=== PATIENT | female | born 1965 | race Caucasian/White ===

== ENCOUNTER 2017-03-25 11:25 | Day surgery (SDC) | payer OTHER ==
[2017-03-24 08:37] VITALS: BMI 30.9
[~2017-03-25 11:25] MED LIST: LACTATED RINGERS 1,000 ML IV SCH
[2017-03-25] MEDS ORDERED: LIDOCAINE 1% 20 ML VIAL (10MG/ML) FOR IV START INTRADERMA ONE (12:39)
[2017-03-25 12:42] VITALS: TEMP 97
[2017-03-25] MEDS ORDERED: GLYCOPYRROLATE 0.2 MG/ML 2 ML VIAL ONE (12:54)
[2017-03-25] MEDS ORDERED: PROPOFOL 10 MG/ML 20 ML VIAL IV ONE (12:54)
[2017-03-25] MEDS ORDERED: fentaNYL (PF) 50 MCG/ML 2 ML AMP ONE (12:54)
[2017-03-25 13:26] VITALS: PULSE 70
--- NOTE | 2017-03-25 13:35 | P.PCN ---
Date of Procedure: 03/25/17 Procedure(s) Performed: Procedures: 1. Esophagogastroduodenoscopy and biopsy. 2. Total colonoscopy. Preoperative diagnosis: Chronic reflux symptoms and screening for colon neoplasia. Postoperative diagnosis: 1. Small sliding hiatal hernia with no obvious esophagitis or complicated reflux disease. 2. Mild antral gastritis. 3. Sigmoid diverticulosis with no evidence of acute diverticulitis, strictures, polyps or cancer. Preparation: HalfLytely prep. Sedation: Was provided by anesthesia. Brief clinical history: The patient is a 51-year-old female who is scheduled for this evaluation for the above reasons. She had reflux symptoms for more than 10 years for which she treats with [id number] remedies. No alarm symptoms. She has no abdominal complaints, bleeding or anemia. No family history of colon cancer. This would be her first colonoscopy. Procedure: With the patient on her left lateral decubitus position and after informed consent and adequate sedation, I passed the Olympus-GIF 160 video upper endoscope through the cricopharyngeus down the esophagus. GE junction was around 39 cm from the incisors and there was a small sliding hiatal hernia. The esophagus did not show any obvious erosions, ulcers, strictures or Yeh 's esophagus. The endoscope was then passed into the stomach which was insufflated with air and inspected in detail including the retroflex view in the cardia. There was some mottling and erythema in the antrum but no ulcers or erosions. Pyloric channel, duodenal bulb, post bulbar area and descending duodenum appeared within normal limits. Because of her symptoms, I obtained biopsies from the duodenum, antrum and esophagus then the endoscope was withdrawn and I proceeded with the colonoscopy. Perianal area did not show any fissures or fistulas. There were no masses felt on digital rectal examination. The Olympus CFQ 160L video colonoscope was then inserted in the rectum in the usual fashion and advanced to the cecum. The mucosa appeared healthy. No polyps or tumors were seen. Several diverticular orifices were seen scattered in the sigmoid with no evidence of acute diverticulitis or strictures. I retroflexed the endoscope in the rectum before the endoscope was withdrawn. The patient tolerated the procedure well. Plan: The patient was reassured. Will await biopsy results. Discussed dietary measures. She will follow-up with you as planned and I recommended repeat colonoscopy in 10 years.
[2017-03-25 13:42] VITALS: BP 129/70; RESP 18
== END 2017-03-25 13:58 | disposition home or self-care (01) ==
LOC: ORWHC2ENDO 11:25
DX: Z12.11 Encounter for screening for malignant neoplasm of colon (principal); K29.50 Unspecified chronic gastritis without bleeding; K21.0 Gastro-esophageal reflux disease with esophagitis; K44.9 Diaphragmatic hernia without obstruction or gangrene; K57.30 Diverticulosis of large intestine without perforation or abscess without bleeding; Z80.0 Family history of malignant neoplasm of digestive organs; I10 Essential (primary) hypertension; F17.210 Nicotine dependence, cigarettes, uncomplicated; Z79.899 Other long term (current) drug therapy
CPT/HCPCS: 81025; 88305; 43239; J3010; J2704; G0105

== ENCOUNTER → 2017-03-31 | Outpatient (CLI) | payer OTHER ==
--- NOTE | 2017-04-01 14:44 | MM ---
Reason for exam: screening (asymptomatic). Last mammogram was performed 6 years and 1 month ago. Physical Findings: A clinical breast exam by your physician is recommended on an annual basis and results should be correlated with mammographic findings. MG Screening Mammo w CAD Bilateral CC and MLO view(s) were taken. Prior study comparison: March 12, 2011, CAD bilateral diagnostic mammogram. May 03, 2010, right diagnostic mammogram w/CAD. The breast tissue is heterogeneously dense. This may lower the sensitivity of mammography. No significant changes when compared with prior studies. ASSESSMENT: Negative, BI-RAD 1 RECOMMENDATION: Routine screening mammogram of both breasts in 1 year.
== END | disposition home or self-care (01) ==
LOC: RADMAMWWP 07:47
PROVIDERS: ATTEND Family Medicine
DX: Z12.31 Encounter for screening mammogram for malignant neoplasm of breast (principal)
CPT/HCPCS: 77067

== ENCOUNTER 2017-05-25 11:41 | Emergency (ER) | payer OTHER ==
[2017-05-25] MEDS ORDERED: HYDROcodone/APAP 5-325MG 1 EACH TAB PO STA (12:05)
--- NOTE | 2017-05-25 13:01 | CT ---
EXAMINATION TYPE: CT brain dawit bhardwaj DATE OF EXAM: 05/25/2017 COMPARISON: NONE HISTORY: Fall today with injury. Head and neck pain CT DLP: 1577.9 mGycm Automated exposure control for dose reduction was used. TECHNIQUE: CT scan of the head and cervical spine are performed without contrast. FINDINGS: BRAIN: Central structures are midline. There is no evidence of hydrocephalus. No acute focal lesion, mass effect or midline shift is seen. I do not see evidence of intracranial blood. Visualized portions of the paranasal sinuses and mastoids are clear. The bony calvarium is intact. IMPRESSION: NO ACUTE INTRACRANIAL ABNORMALITY. CERVICAL SPINE: There are mild emphysematous changes within the visualized portions of the lungs. Prevertebral soft tissues are normal. Vertebral body height and alignment are maintained. Atlantoaxial relationships are normal. There is mild degenerative disc disease and hypertrophic spondylosis at C4-5, C5-6 and C6-6-7. There is mild uncovertebral joint disease at these levels. The facets are unremarkable. No definite protrus ion is seen. No fracture is identified. IMPRESSION: 1. NO ACUTE OSSEOUS LESION. 2. MILD EMPHYSEMATOUS CHANGE. 3. DEGENERATIVE CHANGE.
--- NOTE | 2017-05-25 13:49 | ED ---
Fall HPI - General Chief Complaint: Fall Stated Complaint: fall/neck pain Time Seen by Provider: 05/25/17 11:55 Source: patient, RN notes reviewed Mode of arrival: wheelchair Limitations: no limitations - History of Present Illness Initial Comments: 51-year-old female presents emergency Department chief complaints of a fall. Patient states she slipped on ice fell back striking her head and back. She has a loss conscious. She states she has severe headache. Denies any focal weakness. She has a slight nausea. Denies taking any blood thinners at this time. Denies chest pain or shortness breath no lower extremity injuries. - Related Data Home Medications Medication Instructions Recorded Confirmed Omeprazole 20 mg PO BID 11/28/15 03/24/17 Bisoprolol-Hctz 10-6.25 mg [Ziac 1 each PO DAILY 03/24/17 03/25/17 10-6.25] Lisinopril [Zestril] 5 mg PO DAILY 03/24/17 03/24/17 Naproxen Sodium [Aleve] 220 mg PO QID PRN 03/24/17 03/25/17 Previous Rx's Medication Instructions Recorded Hydrocodone/Acetaminophen [[place] 1 tab PO Q6HR PRN #20 tab 05/25/17 5-325] Allergies Allergy/AdvReac Type Severity Reaction Status Date / Time No Known Allergies Allergy Verified 05/25/17 11:52 Review of Systems ROS Statement: Those systems with pertinent positive or pertinent negative responses have been documented in the HPI. ROS Other: All systems not noted in ROS Statement are negative. Past Medical History Past Medical History: GERD/Reflux, Hypertension History of Any Multi-Drug Resistant Organisms: None Reported Past Surgical History: Tubal Ligation Past Anesthesia/Blood Transfusion Reactions: No Reported Reaction Past Psychological History: No Psychological Hx Reported Smoking Status: Current every day smoker Past Alcohol Use History: None Reported Past Drug Use History: None Reported - Past Family History Mother Family Medical History: No Reported History General Exam Limitations: no limitations General appearance: alert, in no apparent distress Head exam: Present: atraumatic, normocephalic, normal inspection Eye exam: Present: normal appearance, PERRL, EOMI. Absent: scleral icterus, conjunctival injection, periorbital swelling ENT exam: Present: normal exam, normal oropharynx, mucous membranes moist, TM's normal bilaterally, normal external ear exam Neck exam: Present: normal inspection, tenderness. Absent: meningismus, full ROM (Patient in c-collar), lymphadenopathy Respiratory exam: Present: normal lung sounds bilaterally. Absent: respiratory distress, wheezes, rales, rhonchi, stridor Cardiovascular Exam: Present: regular rate, normal rhythm, normal heart sounds. Absent: systolic murmur, diastolic murmur, rubs, gallop, clicks Extremities exam: Present: normal inspection, full ROM, normal capillary refill. Absent: tenderness, pedal edema, joint swelling, calf tenderness Back exam: Present: normal inspection, full ROM, tenderness (Mild tenderness over the upper back), paraspinal tenderness, vertebral tenderness. Absent: CVA tenderness (R), CVA tenderness (L) Neurological exam: Present: alert, oriented X3, CN II-XII intact, reflexes normal, other (Naawhq-ie-vdxv intact bilaterally without shooting.). Absent: motor sensory deficit Skin exam: Present: warm, dry, intact, normal color. Absent: rash Course Vital Signs 05/25/17 11:50 Temperature 97.9 F Pulse Rate 75 Respiratory 20 Rate Blood Pressure 127/67 O2 Sat by Pulse 99 Oximetry Medical Decision Making - Medical Decision Making 51-year-old female presents for slip and fall. CT of the head and neck do not show any acute changes. There is some wedging noted of the thoracic spine may be chronic in nature though given nature of new injury patient we treated with pain medication and follow-up with orthopedics on Friday. Return parameters were discussed. Disposition Clinical Impression: Fall, Head injury, Wedge fracture of thoracic vertebra Disposition: HOME SELF-CARE Condition: Stable Instructions: Vertebral Compression Fracture (ED) Additional Instructions: Please return to the Emergency Department if symptoms worsen or any other concerns. Prescriptions: Hydrocodone/Acetaminophen [[place] 5-325] 1 tab PO Q6HR PRN #20 tab PRN Reason: Pain Referrals: Zhou Velazquez Jr, DO [Primary Care Provider] - 1-2 days Guanakito Cadena DO [Doctor of Osteopathic Medicine] - 1-2 days Time of Disposition: 14:09
--- NOTE | 2017-05-25 14:01 | XR ---
EXAMINATION TYPE: XR thoracic spine 2V , 3 VIEWS DATE OF EXAM ORDERED: 05/25/2017 HISTORY: Pain. COMPARISON: None. FINDINGS: There is minimal wedging of the T5 and T7 vertebral bodies. This is likely chronic. Verteb ral body height and alignment otherwise maintained. There is mild spondylosis deformans in the lower dorsal spine. The pedicles are intact. Paraspinal soft tissues are normal. IMPRESSION: MINIMAL WEDGING OF THE T5 AND T7 VERTEBRAL BODIES. I SUSPECT THIS IS CHRONIC. PLEASE CORRELATE CLINIC ALLY.
[2017-05-25 14:13] VITALS: BP 131/60; PULSE 67; RESP 18; TEMP 98.2
== END 2017-05-25 14:14 | disposition home or self-care (01) ==
LOC: EC 11:41
DX: S22.000A Wedge compression fracture of unspecified thoracic vertebra, initial encounter for closed fracture (principal); S09.90XA Unspecified injury of head, initial encounter; I10 Essential (primary) hypertension; K21.9 Gastro-esophageal reflux disease without esophagitis; F17.200 Nicotine dependence, unspecified, uncomplicated; Z79.899 Other long term (current) drug therapy; W00.0XXA Fall on same level due to ice and snow, initial encounter; Y92.89 Other specified places as the place of occurrence of the external cause
CPT/HCPCS: 70450; 72070; 72125; 99284

== ENCOUNTER → 2017-12-29 | Outpatient (CLI) | payer OTHER ==
--- NOTE | 2017-12-29 16:55 | MR ---
EXAMINATION TYPE: MR knee LT wo con DATE OF EXAM: 12/29/2017 COMPARISON: None HISTORY: LT KNEE PAIN and Lt Knee locking up x3 weeks, prev xray done at Dr. Álvarez TECHNIQUE: Multiplanar, multisequence imaging of the left knee is performed without IV contrast. FINDINGS: MEDIAL MENISCUS: Anterior and posterior horns are intact without tear. LATERAL MENISCUS: Anterior and posterior horns are intact without tear. CRUCIATE LIGAMENTS: The anterior and posterior cruciate ligaments are intact and unremarkable. COLLATERAL LIGAMENTS: The medial collateral ligament and lateral collateral ligament complex are inta ct and unremarkable. EXTENSOR MECHANISM: Visualized quadriceps and patellar tendons are intact. EFFUSION: Small joint effusion is present. No plica is identified. POPLITEAL CYST: No popliteal/davila cyst. TRICOMPARTMENT SPACES: Preserved CARTILAGE: Cartilage appears intact. Significant narrowing is not evident. Mild narrowing may be pres ent. BONE MARROW SIGNAL: No focal abnormal marrow signal is appreciated. OTHER: Note is made of varicosities within the subcutaneous tissues IMPRESSION: 1. Small joint effusion. 2. No suspicious acute changes to account for locking knee.
== END | disposition home or self-care (01) ==
LOC: RADMRIMAIN 15:21
PROVIDERS: ATTEND Orthopaedic Surgery
DX: M25.462 Effusion, left knee (principal)

== ENCOUNTER 2018-01-02 08:50 | Inpatient (IN) | payer OTHER ==
[2018-01-02] MEDS ORDERED: ASPIRIN 81 MG PO STA (08:56)
[2018-01-02] MEDS ORDERED: NITROGLYCERIN SL TABS 0.4 MG TAB SUBLINGUAL STA (08:56)
--- NOTE | 2018-01-02 09:18 | ED ---
Chest Pain HPI - General Chief Complaint: Chest Pain Stated Complaint: chest pain Time Seen by Provider: 01/02/18 08:56 Source: patient, RN notes reviewed Mode of arrival: ambulatory Limitations: no limitations - History of Present Illness Initial Comments: 52-year-old female presents emergency Department chief complaint of chest pain started around 4:30 AM. Patient states it started sideways into a central chest region and through to her back. Patient states she does have a history of hypertension has not been medications for last 4 months because she just stopped taking them. Patient states that nothing makes the pain feel better or worse at this time. Patient states that she does not have a history of hyperlipidemia or diabetes though she is daily smoker and has family cardiac history. Patient admits to slight nausea no diaphoretic episodes no abdominal pain. Patient states she did not feel well when she went to bed last night and feels worse today. - Related Data Home Medications Medication Instructions Recorded Confirmed Omeprazole 40 mg PO BID 01/02/18 01/02/18 Allergies Allergy/AdvReac Type Severity Reaction Status Date / Time No Known Allergies Allergy Verified 01/02/18 09:36 Review of Systems ROS Statement: Those systems with pertinent positive or pertinent negative responses have been documented in the HPI. ROS Other: All systems not noted in ROS Statement are negative. EKG Findings - EKG Comments: EKG Findings:: EKG performed at 904 normal sinus rhythm with rightward axis and prolonged QT rate of 87 [place] 176 QRS 102 QT/QTC 4:30/517 Past Medical History Past Medical History: GERD/Reflux, Hypertension History of Any Multi-Drug Resistant Organisms: None Reported Past Surgical History: Tubal Ligation Past Anesthesia/Blood Transfusion Reactions: No Reported Reaction Past Psychological History: No Psychological Hx Reported Smoking Status: Current every day smoker Past Alcohol Use History: Occasional Past Drug Use History: None Reported - Past Family History Mother Family Medical History: No Reported History Father History Unknown: Yes Additional Family Medical History / Comment(s): father in a work related accident. General Exam - General Exam Comments Initial Comments: Vital signs reviewed patient is hypertensive does have a history of hypertension has been off medications. This will be reevaluated and treated Limitations: no limitations General appearance: alert, in no apparent distress Head exam: Present: atraumatic, normocephalic, normal inspection Eye exam: Present: normal appearance, PERRL, EOMI. Absent: scleral icterus, conjunctival injection, periorbital swelling ENT exam: Present: normal exam, normal oropharynx, mucous membranes moist Neck exam: Present: normal inspection. Absent: tenderness, meningismus, lymphadenopathy Respiratory exam: Present: normal lung sounds bilaterally. Absent: respiratory distress, wheezes, rales, rhonchi, stridor Cardiovascular Exam: Present: normal rhythm, tachycardia (Heart rate 110), normal heart sounds. Absent: systolic murmur, diastolic murmur, rubs, gallop, clicks GI/Abdominal exam: Present: soft, normal bowel sounds. Absent: distended, tenderness, guarding, rebound, rigid Course Vital Signs 01/02/18 01/02/18 01/02/18 08:53 09:13 09:30 Temperature 98.2 F Pulse Rate 110 H 85 Respiratory 20 18 18 Rate Blood Pressure 181/114 128/95 O2 Sat by Pulse 97 98 Oximetry 01/02/18 01/02/18 01/02/18 10:00 10:30 11:00 Temperature Pulse Rate 77 85 85 Respiratory 18 18 18 Rate Blood Pressure 146/98 166/100 176/94 O2 Sat by Pulse 98 99 99 Oximetry 01/02/18 01/02/18 01/02/18 11:30 12:00 12:30 Temperature Pulse Rate 85 88 84 Respiratory 18 18 18 Rate Blood Pressure 175/98 184/112 162/110 O2 Sat by Pulse 98 98 98 Oximetry 01/02/18 01/02/18 01/02/18 13:00 14:00 14:44 Temperature Pulse Rate 92 80 Respiratory 18 18 18 Rate Blood Pressure 180/103 169/99 O2 Sat by Pulse 98 98 100 Oximetry - Reevaluation(s) Reevaluation #1: 01/02/18 10:50 Patient had positive troponin. Patient continues with chest pain no relief with nitro. Patient will be placed on Nitropaste, morphine will be ordered. Chest [facility] 52-[facility] female presented for chest pain. CT, x-ray, lab work were obtained. No evidence PE or dissection. Patient does have positive troponin we started on Nitropaste, heparin. Patiently admitted for an NSTEMI, cardiology evaluation. Disposition Clinical Impression: NSTEMI (non-ST elevated myocardial infarction) Disposition: ADMITTED IP TO THIS HOSP Condition: Fair
[2018-01-02 09:34] LABS: Anisocytosis Slight; Basophils % (A) 0 %; Eosinophils # (A) 0.2 k/uL (0-0.7); Eosinophils % (A) 3 %; HCT 40.4 % (34.0-46.0); Lymphocytes % (A) 19 %; MCH 27.7 pg (25.0-35.0); MCHC 32.2 g/dL (31.0-37.0); MCV 86.2 fL (80.0-100.0); Monocytes # (A) 0.2 k/uL (0-1.0); Monocytes % (A) 5 %; Neutrophils # (A) 3.7 k/uL (1.3-7.7); Neutrophils % (A) 71 %; Platelet Count 224 k/uL (150-450); RBC 4.69 m/uL (3.80-5.40); RDW 16.2 % (11.5-15.5); WBC 5.3 k/uL (3.8-10.6)
[2018-01-02 09:42] LABS: Prothrombin Time 10.1 sec (9.0-12.0)
[2018-01-02 09:43] LABS: Partial Thromboplastin Time 23.1 sec (22.0-30.0)
[2018-01-02 09:46] LABS: ALT 15 U/L (9-52); AST 32 U/L (14-36); Albumin 3.9 g/dL (3.5-5.0); Alkaline Phosphatase 83 U/L (38-126); Anion Gap 9 mmol/L; Blood Urea Nitrogen 8 mg/dL (7-17); Calcium 8.6 mg/dL (8.4-10.2); Carbon Dioxide 25 mmol/L (22-30); Chloride 102 mmol/L (98-107); Glucose 115 mg/dL (74-99); Lipase 156 U/L (23-300); Magnesium 1.8 mg/dL (1.6-2.3); Potassium 4.1 mmol/L (3.5-5.1); Sodium 136 mmol/L (137-145); Total Bilirubin 0.5 mg/dL (0.2-1.3); Total Protein 7.2 g/dL (6.3-8.2)
--- NOTE | 2018-01-02 10:20 | CT ---
EXAMINATION TYPE: CT chest angio for PE DATE OF EXAM: 01/02/2018 COMPARISON: 11/28/2015 chest radiograph HISTORY: Chest pain CT DLP: 316.5 mGycm. Automated Exposure Control for Dose Reduction was Utilized. CONTRAST: CTA scan of the thorax is performed with IV Contrast, patient injected with 100 mL of Isovue 370, pul monary embolism protocol. MIP Images are created on CT scanner and reviewed. FINDINGS: LUNGS: The lungs are grossly clear, there is no concerning parenchymal mass or nodule identified. T here is no pleural effusion or pneumothorax seen. The tracheobronchial tree is patent. There is mini mal bibasilar subsegmental dependent atelectasis. MEDIASTINUM: There is slightly suboptimal enhancement of the pulmonary artery and its branches, howev er there is no CT evidence for pulmonary embolism. There are no greater than 1 cm hilar or mediastin al lymph nodes. Heart is mildly enlarged. No pericardial effusion is seen. OTHER: There is a small hiatal hernia present. Mild multilevel degenerative changes of the thoracic s pine are seen with minimal superior mid body vertebral height loss from degenerative disc disease as the anterior superior endplates maintain normal height and therefore no compression deformity is seen . IMPRESSION: 1. Exam is slightly suboptimal as the patient's IV leaked during injection however no pulmonary embol us is seen. 2. Small hiatal hernia. 3. Mild cardiomegaly.
--- NOTE | 2018-01-02 10:25 | XR ---
EXAMINATION TYPE: XR chest 2V DATE OF EXAM: 01/02/2018 COMPARISON: 11/28/2015 INDICATION: Chest pain TECHNIQUE: Frontal and lateral views of the chest are obtained. FINDINGS: The heart size is normal. The pulmonary vasculature is normal. The lungs are clear. IMPRESSION: 1. No acute pulmonary process.
[2018-01-02 10:32] LABS: Troponin I 0.492 ng/mL (0.000-0.034)
[2018-01-02] MEDS ORDERED: HEPARIN SODIUM,PORCINE 5,000 UNIT/ML 1 ML VIAL IV PRN (10:47)
[2018-01-02] MEDS ORDERED: HEPARIN SODIUM,PORCINE 5,000 UNIT/ML 1 ML VIAL IV ONE (10:47)
[2018-01-02] MEDS ORDERED: MORPHINE SULFATE 4 MG/ML SYRINGE IVP STA (10:48)
[2018-01-02] MEDS ORDERED: NITROGLYCERIN OINT 1 INCH/GM PACKET TOPICAL STA (10:48)
[2018-01-02] MEDS ORDERED: HEPARIN SOD,PORK IN 0.45% NACL 25,000 UNIT in 0.45% NACL 1 500ML.BAG IV SCH (11:00)
[2018-01-02] MEDS ORDERED: INFLUENZA VACCINE (6 MOS+) 60 MCG/0.5 ML SYRINGE IM ONE (11:37)
[2018-01-02] MEDS ORDERED: PNEUMOCOCCAL VACC-PNEUMOVAX 23 25 MCG/0.5 ML VIAL IM ONE (11:38)
[2018-01-02] MEDS ORDERED: NITROGLYCERIN OINT 1 INCH/GM PACKET TOPICAL SCH (12:00)
--- NOTE | 2018-01-02 12:45 | P.CRDCN ---
History of Present Illness Consult date: 01/02/18 Requesting physician: Zhou Velazquez Jr Reason for Consult (text): Chest pain Chief complaint: Chest and back pain History of present illness: This is a pleasant 52-year-old female patient with past medical history of hypertension for which she was not taking medications for because she forgot to take it, current every day smoker about a half pack a day since age of 13 and family history of premature CAD, her mother had open heart surgery at the age of 60. Was feeling fairly well up until yesterday at which time, after eating dinner, she became achy and just did not feel well. She was unable to sleep well last night. Around 4:30 this morning she developed precordial pain that radiated posteriorly to the middle of her back. She rated the pain at about 10. Subsequently presented to the emergency department at which time she was given nitroglycerin without relief. EKG showed no evidence of acute ischemia. CTA of the chest showed no evidence for PE. Labs show potassium 4.1, BUN of 8, creatinine 0.51, normal white blood cell count, hemoglobin, hematocrit and platelet count. Troponin was elevated at 0.492. Patient's blood pressure is elevated, on arrival 181/114 and she is somewhat tachy. She is afebrile. Upon examination, shortly after receiving morphine, patient is lying in bed. She continues to complain of precordial and significant back discomfort. She rates her pain currently at about an 8 out of 10. He currently denies any dizziness, lightheadedness, shortness of breath, or nausea. She did have some dizziness with nausea and dry heaves initially. Past Medical History Past Medical History: GERD/Reflux, Hypertension Additional Past Medical History / Comment(s): Hiatal hernia, diverticular disease History of Any Multi-Drug Resistant Organisms: None Reported Past Surgical History: Tubal Ligation Additional Past Surgical History / Comment(s): EGD, colonoscopy Past Anesthesia/Blood Transfusion Reactions: No Reported Reaction Smoking Status: Current every day smoker - Past Family History Mother Family Medical History: Coronary Artery Disease (CAD), Myocardial Infarction (SC ) Additional Family Medical History / Comment(s): Mother had a SC and 3 vessel CABG at the age of 60 yrs. Father History Unknown: Yes Additional Family Medical History / Comment(s): father in a work related accident. Medications and Allergies Home Medications Medication Instructions Recorded Confirmed Type Omeprazole 40 mg PO BID 01/02/18 01/02/18 History Allergies Allergy/AdvReac Type Severity Reaction Status Date / Time No Known Allergies Allergy Verified 01/02/18 09:36 Physical Exam Vitals: Vital Signs Temp Pulse Resp BP Pulse Ox 01/02/18 09:13 18 01/02/18 08:53 98.2 F 110 H 20 181/114 97 Intake and Output 01/01/18 01/02/18 01/02/18 22:59 06:59 14:59 Other: Weight 77.111 kg PHYSICAL EXAMINATION: HEENT: Head is atraumatic, normocephalic. Pupils equal, round. Neck is supple. There is no elevated jugular venous pressure. HEART EXAMINATION: Heart sounds regular, S1 and S2 normal. No murmur or gallop heard. CHEST EXAMINATION: Lungs are clear to auscultation and precussion. No chest wall tenderness is noted on palpation or with deep breathing. ABDOMEN: Soft, nontender. Bowel sounds are heard. No organomegaly noted. EXTREMITIES: 2+ peripheral pulses with no evidence of peripheral edema and no calf tenderness noted. NEUROLOGIC patient is awake, alert and oriented x3. . Results 01/02/18 09:19 01/02/18 09:19 Cardiac Enzymes 01/02/18 01/02/18 Range/Units 09:19 09:19 AST 32 (14-36) U/L CK-MB (CK-2) 5.0 H (0.0-2.4) ng/mL Troponin I 0.492 H* (0.000-0.034) ng/mL Coagulation 01/02/18 Range/Units 09:19 PT 10.1 (9.0-12.0) sec APTT 23.1 (22.0-30.0) sec CBC 01/02/18 Range/Units 09:19 WBC 5.3 (3.8-10.6) k/uL RBC 4.69 (3.80-5.40) m/uL Hgb 13.0 (11.4-16.0) gm/dL Hct 40.4 (34.0-46.0) % Plt Count 224 (150-450) k/uL Comprehensive Metabolic Panel 01/02/18 Range/Units 09:19 Sodium 136 L (137-145) mmol/L Potassium 4.1 (3.5-5.1) mmol/L Chloride 102 (98-107) mmol/L Carbon Dioxide 25 (22-30) mmol/L BUN 8 (7-17) mg/dL Creatinine 0.51 L (0.52-1.04) mg/dL Glucose 115 H (74-99) mg/dL Calcium 8.6 (8.4-10.2) mg/dL AST 32 (14-36) U/L ALT 15 (9-52) U/L Alkaline Phosphatase 83 (38-126) U/L Total Protein 7.2 (6.3-8.2) g/dL Albumin 3.9 (3.5-5.0) g/dL Current Medications Generic Name Dose Route Start Last Admin Trade Name Freq PRN Reason Stop Dose Admin Aspirin 325 mg 01/03/18 09:00 Aspirin PO DAILY FERMÍN Heparin Sodium (Porcine) 0 unit 01/02/18 10:47 Heparin IV PER PROTOCOL PRN Low PTT Protocol Heparin Sodium/Sodium Chloride 500 mls @ 18.5 mls/hr 01/02/18 11:00 01/02/18 12:01 25,000 unit/ Sodium Chloride IV 12 units/kg/hr .Q24H FERMÍN 18.5 mls/hr Administration Protocol 12 UNITS/KG/HR Nitroglycerin 1 inch 01/02/18 12:00 Nitro-Bid Oint TOPICAL Q6HR FERMÍN Intake and Output 01/01/18 01/02/18 01/02/18 22:59 06:59 14:59 Other: Weight 77.111 kg Patient Weight 01/03/18 06:59 Weight 77.111 kg 01/02/18 09:19 01/02/18 09:19 Assessment and Plan Assessment: 1 symptoms of chest pain with troponin elevation consistent with non-ST elevation SC #2 hypertension, uncontrolled #3 noncompliance #4 nicotine dependence #5 family history of premature CAD Plan: From cardiology's perspective, we will obtain a 2-D echo with Doppler. Plan for cardiac catheterization to be done today. I discussed with the patient rationale, benefits and risks as well as possible outcome and interventions depending on findings. Mrs. Mcmullen verbalized understanding. Also discussed importance of smoking cessation and medication compliance. The recommendations to follow. CHANGE COORDINATOR note has been reviewed, I agree with a documented findings and plan of care. Patient was seen and examined.
[2018-01-02] MEDS ORDERED: ATORVASTATIN 80 MG TAB PO STA (13:43)
[2018-01-02] MEDS ORDERED: NITROGLYCERIN SL TABS 0.4 MG TAB SUBLINGUAL PRN (13:43)
[2018-01-02] MEDS ORDERED: ALPRAZolam 0.5 MG TAB PO PRN (13:43)
[2018-01-02] MEDS ORDERED: ALPRAZolam 0.25 MG TAB PO PRN (13:43)
[2018-01-02] MEDS ORDERED: SODIUM CHLORIDE 0.9% 1,000 ML in EMPTY BAG 1 BAG IV ONE (13:43)
[2018-01-02] MEDS ORDERED: ASPIRIN 325 MG TAB PO STA (13:43)
[2018-01-02] MEDS ORDERED: IV FLUID CONTINUATION 900 ML IV ONE (15:09)
[2018-01-02] MEDS ORDERED: fentaNYL (PF) 50 MCG/ML 2 ML AMP IV ONE (15:09)
[2018-01-02] MEDS ORDERED: LIDOCAINE 1% INJ 10MG/ML (20 ML MDV) SQ ONE (15:20)
[2018-01-02] MEDS ORDERED: VERAPAMIL SYRINGE (5 MG/10 ML) INTRAARTER ONE (15:22)
[2018-01-02] MEDS ORDERED: HEPARIN SODIUM 1,000 UN/ML (10ML VL) IV ONE (15:31)
[2018-01-02] MEDS ORDERED: IOPAMIDOL-370 125ML BTL INJ ONE (15:40)
[2018-01-02] MEDS ORDERED: RX INFO: IV CONTRAST WAS GIVEN 1 EACH MISC MISCELLANE PRN (15:45)
[2018-01-02] MEDS ORDERED: SODIUM CHLORIDE 0.9% 1,000 ML IV SCH (15:45)
[2018-01-02] MEDS ORDERED: CLOPIDOGREL 75 MG TAB PO ONE (15:47)
--- NOTE | 2018-01-02 16:13 | CC ---
CARDIAC CATHETERIZATION REPORT Mrs. Mcmullen is a 52-year-old female with known history of chronic tobacco use, history of hypertension and a family history of premature coronary artery disease who has not been taking any blood pressure medication for the last few months. She presented with symptoms of chest discomfort. She had mild elevation of troponin, but no significant EKG changes. In view of that, recommendation was made regarding cardiac catheterization. The procedure, its risks and complications were discussed with the patient, who was in full understanding and agreement. PROCEDURE: Patient was brought to the laborer tanbark in a fasting, semi-sedated state after receiving fentanyl and Benadryl and achieving a moderate conscious sedated state. Using Xylocaine anesthesia and Seldinger technique, a 6-Nigerien sheath was introduced into the right radial artery. Selective right and left coronary angiography was performed using 5-Nigerien 3-1/2 bend, right and left Chasity catheters. Multiple views of the coronary arteries, including hemiaxial views, were obtained. Following that, a 5-Nigerien tight pigtail catheter was introduced into the left ventricle and a 30-degree ALVARADO view of the left ventricle was obtained. Following that, catheter and sheath were removed. Hemostasis was obtained with deployment of a TR band. There was no immediate complication. Patient was returned to her room in stable condition. Of note, the patient received 3000 units of intravenous heparin as well as intra-arterial verapamil. FINDINGS: LEFT MAIN: This is a large-sized vessel bifurcating into left circumflex and left anterior descending artery. Left main coronary artery has no evidence of high-grade stenosis. LEFT ANTERIOR DESCENDING ARTERY: This is a large-sized vessel reaching toward the apex with a wrap around the apex segment giving rise to a large diagonal branch. At the takeoff of the diagonal branch there is a plaque in the LAD of about 30% to 40%. The rest of the vessel has no high-grade stenosis. LEFT CIRCUMFLEX: This is a small-sized vessel that has no evidence of high-grade stenosis. RIGHT CORONARY ARTERY: This is a large-sized vessel bifurcating distally into PDA, posterolateral segment and branches. The PLV reaches toward the inferolateral and posterolateral wall. The right coronary artery proximally has 20% to 30% plaque. There is another plaque at the bifurcation distally of 10% to 20% with mild haziness. LEFT VENTRICULOGRAM: Left ventriculogram was performed in 30-degree ALVARADO and revealed an inferior wall hypokinesis. The overall ejection fraction is impaired and estimated at 35% to 40%. There was 2+ mitral regurgitation. HEMODYNAMICS: There was no gradient across the aortic valve. The left ventricular end- diastolic pressure was 20 to24 mmHg. CONCLUSION: 1. Mild disease involving the LAD and the right coronary artery. 2. Moderately to severely impaired left ventricular systolic function. RECOMMENDATIONS: Those findings are suggestive of a plaque rupture, but no significant underlying disease at this time. I have recommended maximizing her medical therapy. Depending on her progress, further recommendations will be made. Those findings and recommendations were discussed with the patient, who is in full understanding and agreement. Duration of procedure was 19 minutes. MMKOURTNEY / SUNNIN: [id number] /
--- NOTE | 2018-01-02 17:19 | ECHOF ---
Referral Reason:NSTEMI MEASUREMENTS -------- HEIGHT: 162.6 cm WEIGHT: 77.1 kg BP: 181/114 RVIDd: 3.3 cm (< 3.3) IVSd: 1.0 cm (0.6 - 1.1) LVIDd: 5.3 cm (3.9 - 5.3) LVPWd: 1.1 cm (0.6 - 1.1) IVSs: 1.3 cm LVIDs: 4.1 cm LVPWs: 1.5 cm LA Diam: 3.7 cm (2.7 - 3.8) Ao Diam: 3.2 cm (2.0 - 3.7) AV Cusp: 2.0 cm (1.5 - 2.6) MV EXCURSION: 14.230 mm (> 18.000) MV EF SLOPE: 25 mm/s (70 - 150) EPSS: 1.0 cm MV E Perry: 0.73 m/s MV DecT: 211 ms MV A Perry: 0.91 m/s MV E/A Ratio: 0.80 FINDINGS -------- Sinus rhythm. This was a technically adequate study. The left ventricular size is normal. There is borderline concentric left ventricular hypertrophy. Overall left ventricular systolic function is moderately impaired with, an EF between 35 - 40 %. B fide lateral LV wall motion is hypokinetic. Basal inferior LV wall motion is hypokinetic. Basal inferoseptal LV wall motion is hypokinetic. Mid lateral LV wall motion is hypokinetic. Mid inf erior LV wall motion is hypokinetic. The right ventricle is mildly enlarged. The left atrial size is normal. The right atrium is normal in size. The aortic valve is trileaflet, and appears structurally normal. No aortic stenosis or regurgitation. The mitral valve is normal. Mild mitral regurgitation is present. The tricuspid valve appears structurally normal. The pulmonic valve was not well visualized. There is no pulmonic regurgitation present. The aortic root size is normal. Normal inferior vena cava with normal inspiratory collapse consistent with estimated right atrial pre ssure of 5 mmHg. There is no pericardial effusion. CONCLUSIONS -------- 1. Sinus rhythm. 2. This was a technically adequate study. 3. The left ventricular size is normal. 4. There is borderline concentric left ventricular hypertrophy. 5. Overall left ventricular systolic function is moderately impaired with, an EF between 35 - 40 %. 6. Basal lateral LV wall motion is hypokinetic. 7. Basal inferior LV wall motion is hypokinetic. 8. Basal inferoseptal LV wall motion is hypokinetic. 9. Mid lateral LV wall motion is hypokinetic. 10. Mid inferior LV wall motion is hypokinetic. 11. The right ventricle is mildly enlarged. 12. The left atrial size is normal. 13. The aortic valve is trileaflet, and appears structurally normal. No aortic stenosis or regurgitat ion. 14. The mitral valve is normal. 15. Mild mitral regurgitation is present. 16. The tricuspid valve appears structurally normal. 17. The pulmonic valve was not well visualized. 18. There is no pulmonic regurgitation present. 19. The aortic root size is normal. 20. Normal inferior vena cava with normal inspiratory collapse consistent with estimated right atrial pressure of 5 mmHg. 21. There is no pericardial effusion. LUMBER STACKER OPERATOR: Chata Rivas RDCS
[2018-01-02] MEDS: CARVEDILOL 6.25 MG TAB PO SCH (18:02)
[2018-01-02] MEDS ORDERED: ACETAMINOPHEN TAB 325 MG TAB PO PRN (18:47)
[2018-01-02 19:38] LABS: Creatine Kinase MB 6.5 ng/mL (0.0-2.4)
[2018-01-02 19:45] LABS: Troponin I 1.1 ng/mL (0.000-0.034)
[2018-01-02] MEDS: LISINOPRIL 5 MG TAB PO SCH (20:15)
[2018-01-03 01:17] LABS: Creatine Kinase MB 5.3 ng/mL (0.0-2.4)
[2018-01-03 01:22] LABS: Troponin I 1.32 ng/mL (0.000-0.034)
[2018-01-03] MEDS: CARVEDILOL 6.25 MG TAB PO SCH ×2 (06:30→16:48)
[2018-01-03 07:10] LABS: Anion Gap 3 mmol/L; Blood Urea Nitrogen 7 mg/dL (7-17); Calcium 7.9 mg/dL (8.4-10.2); Carbon Dioxide 29 mmol/L (22-30); Chloride 105 mmol/L (98-107); Cholesterol 155 mg/dL (<200); Glucose 99 mg/dL (74-99); HDL Cholesterol 50 mg/dL (40-60); LDL Cholesterol,Calculated 70 mg/dL (0-99); Sodium 137 mmol/L (137-145); Triglycerides 176 mg/dL (<150)
[2018-01-03] MEDS ORDERED: ASPIRIN 325 MG TAB PO SCH (09:00)
[2018-01-03] MEDS: ATORVASTATIN 40 MG TAB PO SCH (09:34)
[2018-01-03] MEDS: ASPIRIN 81 MG PO SCH (09:34)
[2018-01-03] MEDS: CLOPIDOGREL 75 MG TAB PO SCH (09:34)
[2018-01-03] MEDS: LISINOPRIL 5 MG TAB PO SCH ×2 (09:34→19:43)
[2018-01-03] MEDS: SPIRONOLACTONE 25 MG TAB PO SCH (09:34)
--- NOTE | 2018-01-03 09:53 | PN ---
PROGRESS NOTE Mrs. Medrano is a 52-year-old female who presented with symptoms of chest discomfort and mild troponin changes. She underwent cardiac catheterization, was found to have no evidence of significant obstructive coronary artery disease with segmental wall motion abnormality raising the possibility of a ruptured plaque and no underlying severe disease. She is doing well this morning. She has no chest pain. Her breathing is stable. She denies any dizziness or palpitation. She denies any nausea. MEDICATION: Include aspirin once a day, Lipitor 40 mg daily, Coreg 6.5 mg twice a day, Plavix 75 mg daily, and Zestril 5 mg twice a day and Aldactone 25 mg daily. PHYSICAL EXAMINATION: Blood pressure 136/70 with a heart rate in the 80s. LUNGS: Clear. HEART: Regular rate and rhythm S1, S2. No S3. No rub. ABDOMEN: Soft, nontender, right radial pulse intact. LAB DATA: BUN and creatinine 7 and 0.53, potassium 4.0, cholesterol 155, LDL of 70. Her echocardiogram revealed segmental wall motion abnormality with an ejection fraction of 35% to 40% with segmental wall motion. IMPRESSION: 1. Non ST-segment elevation myocardial infarction with ischemic cardiomyopathy and no high-grade stenosis. 2. Tobacco use. 3. Hypertension. RECOMMENDATION: We will continue present therapy, increase her level of activity. Follow her renal function. If remains stable I am hoping she will be able to be discharged home tomorrow. XIOMARA / HALIE: [id number] /
--- NOTE | 2018-01-03 11:25 | P.HPIM ---
History of Present Illness H&P Date: 01/03/18 Chief Complaint: Chest pain This is a 52-year-old white male, well-known to my Partner Dr. Velazquez. She had not been in the office in some time. She is a smoker. She reports that on , January 01 in the evening she was woke with chest pain, it worsened through the morning of January 02, total she came emergency room. She is found to have a normal EKG but abnormal troponins. Cardiology had seen and evaluated her and took her to the computer lab para professional. Cardiac catheterization showed mild disease. A 2-D echo showed hypokinesis and ejection fraction 35-40%. Radiology indicated that this is consistent with a ruptured plaque syndrome and a and NSTEMI. Primary care was never contacted about this patient until January 02 at 6:40 PM him on the floor nurse called for home medications. 01/03/2018: Patient is resting comfortably in her hospital bed. She denies any chest pains, pressures, or shortness of breath this time. She indicates he wishes to quit smoking. She is tolerating a diet at this time. She denies any nausea or vomiting. Review of Systems All systems: negative Past Medical History Past Medical History: GERD/Reflux, Hypertension Additional Past Medical History / Comment(s): Hiatal hernia, diverticular disease History of Any Multi-Drug Resistant Organisms: None Reported Past Surgical History: Tubal Ligation Additional Past Surgical History / Comment(s): EGD, colonoscopy Past Anesthesia/Blood Transfusion Reactions: No Reported Reaction Past Psychological History: No Psychological Hx Reported Smoking Status: Current every day smoker Past Alcohol Use History: Occasional Past Drug Use History: None Reported - Past Family History Mother Family Medical History: No Reported History Additional Family Medical History / Comment(s): Mother had a [place] and 3 vessel CABG at the age of 60 yrs. Father History Unknown: Yes Additional Family Medical History / Comment(s): father in a work related accident. Medications and Allergies Home Medications Medication Instructions Recorded Confirmed Type Omeprazole 40 mg PO BID 01/02/18 01/02/18 History Allergies Allergy/AdvReac Type Severity Reaction Status Date / Time No Known Allergies Allergy Verified 01/02/18 09:36 Physical Exam Vitals: Vital Signs Temp Pulse Pulse Resp BP BP Pulse Ox 01/03/18 08:00 98.4 F 84 18 129/62 95 01/03/18 04:00 97.8 F 82 18 136/78 97 01/02/18 23:29 88 18 143/68 96 01/02/18 20:00 97.4 F L 93 18 141/71 97 01/02/18 19:30 97.4 F L 93 18 141/71 97 01/02/18 18:30 92 18 170/79 98 01/02/18 17:30 80 18 177/92 97 01/02/18 17:00 77 18 179/90 97 01/02/18 16:30 75 18 173/88 97 01/02/18 16:15 80 18 174/92 97 01/02/18 16:00 97.7 F 80 18 184/99 97 01/02/18 14:44 18 100 01/02/18 14:00 80 18 169/99 98 01/02/18 13:00 92 18 180/103 98 01/02/18 12:30 84 18 162/110 98 01/02/18 12:00 88 18 184/112 98 01/02/18 11:30 85 18 175/98 98 Intake and Output 01/02/18 01/03/18 01/03/18 22:59 06:59 14:59 Intake Total 300 616 240 Output Total 800 Balance 300 616 -560 Intake: IV 300 616 Sodium Chloride 0.9% 1, 616 000 ml In Empty Bag 1 bag @ 1 ML/KG/HR 77.11 mls/ hr IV .[id number] ONE Rx#: [id number] Oral 240 Output: Urine 800 Other: Voiding Method Toilet Toilet # Voids 1 1 Weight 81.8 kg GENERAL: Fatigued, well-nourished and in no acute distress. HEAD: Atraumatic, normocephalic. EYES: Pupils equal round and reactive to light, extraocular movements intact, sclera anicteric, conjunctiva are normal. ENT:nares patent, oropharynx clear without exudates. Moist mucous membranes. NECK: Normal range of motion, supple without lymphadenopathy or JVD, no thyromegaly LUNGS: Breath sounds coarse to auscultation bilaterally and equal. No wheezes rales or rhonchi. HEART: Regular rate and rhythm without murmurs, rubs or gallops.S1S2 Normal ABDOMEN: Soft, nontender, normoactive bowel sounds. No guarding, no rebound. No masses appreciated. EXTREMITIES: Normal range of motion, no pitting or edema. No clubbing or cyanosis. NEUROLOGICAL: Cranial nerves II through XII grossly intact. Normal speech, normal gait. PSYCH: Normal mood, normal affect. SKIN: Warm, Dry, normal turgor, no rashes or lesions noted. Results CBC & Chem 7: 01/02/18 09:19 01/03/18 06:26 Labs: Abnormal Lab Results - Last 24 Hours (Table) 01/02/18 01/03/18 01/03/18 Range/Units 18:40 00:11 06:26 Calcium 7.9 L (8.4-10.2) mg/dL Total Creatine Kinase 147 H (30-135) U/L CK-MB (CK-2) 6.5 H 5.3 H (0.0-2.4) ng/mL Troponin I 1.100 H* 1.320 H* (0.000-0.034) ng/mL Triglycerides 176 H (<150) mg/dL Chest x-ray: report reviewed CT scan - chest: report reviewed Thrombosis Risk Factor Assmnt - DVT/VTE Prophylaxis DVT/VTE Prophylaxis: Pharmacologic Prophylaxis ordered (On admission by ER doctor) - Choose All That Apply Any of the Below Risk Factors Present?: Yes Each Factor Represents 1 point: Age 41-60 years, Obesity (BMI >25) Other Risk Factors: No Other congenital or acquired thrombophilia - If yes, enter type in comment: No Thrombosis Risk Factor Assessment Total Risk Factor Score: 2 Thrombosis Risk Factor Assessment Level: Low Risk Assessment and Plan (1) Tobacco abuse counseling Current Visit: Yes Status: Acute Code(s): Z71.6 - TOBACCO ABUSE COUNSELING SNOMED Code(s): 538778280 (2) Tobacco abuse Current Visit: Yes Status: Acute Code(s): Z72.0 - TOBACCO USE SNOMED Code( s): 911009312 (3) Systolic congestive heart failure Current Visit: Yes Status: Acute Code(s): I50.20 - UNSPECIFIED SYSTOLIC ( CONGESTIVE) HEART FAILURE SNOMED Code(s): 131342830 (4) Essential (primary) hypertension Current Visit: Yes Status: Acute Code(s): I10 - ESSENTIAL (PRIMARY) HYPERTENSION SNOMED Code(s): 18989939 (5) NSTEMI (non-ST elevated myocardial infarction) Current Visit: Yes Status: Acute Code(s): I21.4 - NON-ST ELEVATION (NSTEMI) MYOCARDIAL INFARCTION SNOMED Code(s): 632782418 Plan: Cardiology would like to keep the patient on the day for observation. We will start her on a nicotine patch and plan Chantix for her at discharge. I spent 5 minutes with her discussing smoking cessation and the options available to her. This is after my exam. I reevaluated next 24 hours. Wait on Further recommendations from cardiology.
[2018-01-03] MEDS: NICOTINE 21MG/24HR PATCH TRANSDERM SCH (11:51)
[2018-01-04 06:07] LABS: Anisocytosis Slight; Basophils % (A) 0 %; Eosinophils # (A) 0.1 k/uL (0-0.7); Eosinophils % (A) 2 %; HCT 38.1 % (34.0-46.0); HGB 11.9 gm/dL (11.4-16.0); Hypochromasia Slight; Lymphocytes # (A) 1.3 k/uL (1.0-4.8); Lymphocytes % (A) 23 %; MCH 27.8 pg (25.0-35.0); MCHC 31.3 g/dL (31.0-37.0); MCV 88.8 fL (80.0-100.0); Monocytes # (A) 0.3 k/uL (0-1.0); Monocytes % (A) 5 %; Neutrophils # (A) 3.7 k/uL (1.3-7.7); Neutrophils % (A) 67 %; Platelet Count 216 k/uL (150-450); RBC 4.29 m/uL (3.80-5.40); RDW 16.3 % (11.5-15.5); WBC 5.5 k/uL (3.8-10.6)
[2018-01-04] MEDS: CARVEDILOL 6.25 MG TAB PO SCH (06:16)
[2018-01-04 06:20] LABS: Anion Gap 7 mmol/L; Blood Urea Nitrogen 10 mg/dL (7-17); Calcium 8.3 mg/dL (8.4-10.2); Carbon Dioxide 27 mmol/L (22-30); Chloride 104 mmol/L (98-107); Glucose 96 mg/dL (74-99); Potassium 4.3 mmol/L (3.5-5.1); Sodium 138 mmol/L (137-145)
[2018-01-04] MEDS: LISINOPRIL 5 MG TAB PO SCH (10:37)
[2018-01-04] MEDS: ASPIRIN 81 MG PO SCH (10:38)
[2018-01-04] MEDS: ATORVASTATIN 40 MG TAB PO SCH (10:38)
[2018-01-04] MEDS: NICOTINE 21MG/24HR PATCH TRANSDERM SCH (10:38)
[2018-01-04] MEDS: CLOPIDOGREL 75 MG TAB PO SCH (10:38)
[2018-01-04] MEDS: SPIRONOLACTONE 25 MG TAB PO SCH (10:39)
[2018-01-04 10:45] VITALS: TEMP 97.7
--- NOTE | 2018-01-04 11:11 | P.DS ---
Providers Date of admission: 01/02/18 11:03 Expected date of discharge: 01/04/18 Attending physician: Zhou Velazquez Consults: 01/02/18 10:51 Consult Physician Urgent Consulting Provider: Francisco Faith Consult Reason/Comments: chest pain Do you want consulting provider notified?: Yes Primary care physician: Zhou Velazquez - Discharge Diagnosis(es) (1) Tobacco abuse counseling Current Visit: Yes Status: Acute (2) Tobacco abuse Current Visit: Yes Status: Acute (3) Systolic congestive heart failure Current Visit: Yes Status: Acute (4) Essential (primary) hypertension Current Visit: Yes Status: Acute (5) NSTEMI (non-ST elevated myocardial infarction) Current Visit: Yes Status: Acute Hospital Course: This is a 52-year-old white male, well-known to my Partner Dr. Velazquez. She had not been in the office in some time. She is a smoker. She reports that on , January 01 in the evening she was woke with chest pain, it worsened through the morning of January 02, total she came emergency room. She is found to have a normal EKG but abnormal troponins. Cardiology had seen and evaluated her and took her to the equipment operator/laborer. Cardiac catheterization showed mild disease. A 2-D echo showed hypokinesis and ejection fraction 35-40%. Radiology indicated that this is consistent with a ruptured plaque syndrome and a and NSTEMI. Primary care was never contacted about this patient until January 02 at 6:40 PM him on the floor nurse called for home medications. 01/03/2018: Patient is resting comfortably in her hospital bed. She denies any chest pains, pressures, or shortness of breath this time. She indicates he wishes to quit smoking. She is tolerating a diet at this time. She denies any nausea or vomiting. 01/04/2018: Patient is resting comfortably in her hospital bed. She denies any chest pains, pressures, or shortness of breath this time. She started on nicotine patch yesterday to aid her in quitting smoking.. She is tolerating a diet at this time. She denies any nausea or vomiting. Patient Condition at Discharge: Fair Plan - Discharge Summary Discharge Rx Participant: No New Discharge Prescriptions: New Aspirin 81 mg PO DAILY chew Atorvastatin [Lipitor] 40 mg PO DAILY #90 tab Carvedilol [Coreg] 12.5 mg PO BID #180 tablet Clopidogrel [Plavix] 75 mg PO DAILY #90 tab Lisinopril [Zestril] 5 mg PO BID #180 tab Nitroglycerin Sl Tabs [Nitrostat] 0.4 mg SUBLINGUAL Q5M PRN #25 tab PRN Reason: Chest Pain Spironolactone [Aldactone] 25 mg PO DAILY #90 tab Carvedilol [Coreg*] 12.5 mg PO BID-W/MEALS tab Nicotine 21Mg/24Hr Patch [Habitrol] 1 patch TRANSDERM DAILY #14 patch Continue Omeprazole 40 mg PO BID Discharge Medication List Omeprazole 40 mg PO BID 01/02/18 [History] Aspirin 81 mg PO DAILY chew 01/04/18 [Rx] Atorvastatin [Lipitor] 40 mg PO DAILY #90 tab 01/04/18 [Rx] Carvedilol [Coreg*] 12.5 mg PO BID-W/MEALS tab 01/04/18 [Rx] Carvedilol [Coreg] 12.5 mg PO BID #180 tablet 01/04/18 [Rx] Clopidogrel [Plavix] 75 mg PO DAILY #90 tab 01/04/18 [Rx] Lisinopril [Zestril] 5 mg PO BID #180 tab 01/04/18 [Rx] Nicotine 21Mg/24Hr Patch [Habitrol] 1 patch TRANSDERM DAILY #14 patch 01/04/18 [ Rx] Nitroglycerin Sl Tabs [Nitrostat] 0.4 mg SUBLINGUAL Q5M PRN #25 tab 01/04/18 [Rx ] Spironolactone [Aldactone] 25 mg PO DAILY #90 tab 01/04/18 [Rx] Follow up Appointment(s)/Referral(s): Tala Soriano MD [STAFF PHYSICIAN] - 1 Week Zhou Velazquez Jr, DO [Primary Care Provider] - 1-2 days Discharge Disposition: HOME SELF-CARE
--- NOTE | 2018-01-04 11:27 | PN ---
PROGRESS NOTE Mrs. Medarno is a 52-year-old female who presented with symptoms of chest discomfort and elevation of troponin, underwent cardiac catheterization, was found to have no evidence of high-grade stenosis with impaired left ventricular systolic function consistent with non ST-segment elevation myocardial infarction probably related to ruptured plaque. She is doing well this morning. She denies any symptoms of chest pain. Her breathing has been stable. She denies any dizziness or palpitation. She continues to be on aspirin once a day, Lipitor 40 mg daily, Coreg 6.5 mg twice a day, Plavix 75 mg daily, lisinopril 5 mg twice a day and spironolactone 25 mg daily. PHYSICAL EXAMINATION: Blood pressure 132/70 with a heart rate in the 80s. LUNGS: Clear. HEART: Regular rhythm S1, S2. No S3. No rub. ABDOMEN: Soft nontender. EXTREMITIES: No edema. LAB DATA: Lab data revealed a BUN and creatinine of 10 and 0.57. Potassium 4.3, hemoglobin of 11.9. IMPRESSION: 1. Non ST-segment elevation myocardial infarction with probable ruptured plaque that is sealed. 2. Cardiomyopathy. 3. History of chronic tobacco use. 4. History of hypertension. RECOMMENDATIONS: I will increase the dose of her Coreg. Increase her level of activity. If she is stable by the afternoon, I would expect she should be able to be discharged home and followed as an outpatient. The importance of smoking cessation was discussed with her and her family. XIOMARA / HALIE: [id number] /
[2018-01-04 12:40] VITALS: BP 122/69; PULSE 82; RESP 17
[2018-01-04] MEDS ORDERED: CARVEDILOL 12.5 MG TAB PO SCH (17:30)
--- NOTE | 2018-01-05 08:54 | CDI ---
Last Revision, January 2017 Documentation Clarification Form Date: 01/05/2018 8:18:57 AM From: Erna Santiago Phone: If you have a question about this query, please contact Alma Salcedo Chrome Tanning Drum Operator at [phone] between 8am and 5pm. Admit Date: 01/02/2018 11:03:00 AM Patient Name: Crispin Mcmullen Visit Number: [id number] Discharge Date: 01/05/18 ATTENTION: The Clinical Documentation Specialists (CDI) and [facility] Coding Staff appreciate your assistance in clarifying documentation. Please respond to the clarification below the line at the bottom and electronically sign. The CDI & [facility] Coding staff will review the response and follow-up if needed. Please note: Queries are made part of the Legal Health Record. If you have any questions, please contact the author of this message via ITS. Maco Suarez MD History/Risk Factors:. NSTEMI, uncontrolled HTN, systolic CHF, smoker VS/Pulse OX: 110, 181/114, 20, 97% RA BNP: 1350 Echocardiogram Results: Vetricular systolic function is moderately impaired EF 35-40%. In your professional opinion, can you please clarify the acuity of the systolic CHF Acute Chronic Acute on Chronic Unable to Determine Other, please specify THIS CHF is ACUTEsystolic CHF MTDD
== END 2018-01-04 14:24 | disposition home or self-care (01) | DRG 280 ==
LOC: EC 08:50 → 3SCARD 11:03
PROVIDERS: ADMIT Family Medicine; ATTEND Family Medicine
PROC: B2111ZZ Fluoroscopy of Multiple Coronary Arteries using Low Osmolar Contrast (ICD-10-PCS; 2018-01-02)
PROC: B2151ZZ Fluoroscopy of Left Heart using Low Osmolar Contrast (ICD-10-PCS; 2018-01-02)
PROC: 4A023N7 Measurement of Cardiac Sampling and Pressure, Left Heart, Percutaneous Approach (ICD-10-PCS; principal; 2018-01-02 15:00)
DX: I21.4 Non-ST elevation (NSTEMI) myocardial infarction (principal); I50.21 Acute systolic (congestive) heart failure; Z71.6 Tobacco abuse counseling; F17.210 Nicotine dependence, cigarettes, uncomplicated; I11.0 Hypertensive heart disease with heart failure; I25.10 Atherosclerotic heart disease of native coronary artery without angina pectoris; I25.5 Ischemic cardiomyopathy; K21.9 Gastro-esophageal reflux disease without esophagitis; Z79.02 Long term (current) use of antithrombotics/antiplatelets; Z79.899 Other long term (current) drug therapy; Z82.49 Family history of ischemic heart disease and other diseases of the circulatory system; Z91.19 Patient's noncompliance with other medical treatment and regimen
CPT/HCPCS: 36415; 71046; 71275; 80048; 80053; 80061; 82550; 82553; 83690; 83735; 83880; 84484; 85025; 85610; 85730; 93005; 93306; 93458; 96365; 96366; 96375; 96376; 99285

== ENCOUNTER 2019-01-19 11:54 | Emergency (ER) | payer OTHER ==
[2019-01-19 12:39] VITALS: BP 162/100; PULSE 95; RESP 18; TEMP 98
--- NOTE | 2019-01-19 13:33 | ED ---
General Adult HPI - General Chief complaint: ENT Stated complaint: Abcess Time Seen by Provider: 01/19/19 12:50 Source: patient, RN notes reviewed, old records reviewed Mode of arrival: ambulatory Limitations: no limitations - History of Present Illness Initial comments: 53-year-old female patient presents to the chief complaint dental abscess. Patient reports that she grinds her teeth at night most of it in the inside of her lip. Patient reported that she is a small pustule in the mucosa of her lip. Has been there for approximately 2 days. Denies any other complaints at this time. Systemic: Pt denies fatigue, fever/chills, rash. Pt denies weakness, night sweats, weight loss. Neuro: Pt denies headache, visual disturbances, syncope or pre-syncope. HEENT: Pt denies ocular discharge or irritation, otalgia, rhinorrhea, pharyngitis or notable lymphadenopathy. Cardiopulmonary: Pt denies chest pain, SOB, heart palpitations, dyspnea on exertion. Abdominal/GI: Pt denies abdominal pain, n/v/d. : Pt denies dysuria, burning w/ urination, frequency/urgency. Denies new onset urinary or bowel incontinence. MSK: Pt denies myalgia, loss of strength or function in extremities. Neuro: Pt denies new onset weakness, paresthesias. - Related Data Home Medications Medication Instructions Recorded Confirmed Omeprazole 40 mg PO BID 01/02/18 01/02/18 Previous Rx's Medication Instructions Recorded Aspirin 81 mg PO DAILY chew 01/04/18 Atorvastatin [Lipitor] 40 mg PO DAILY #90 tab 01/04/18 Carvedilol [Coreg*] 12.5 mg PO BID-W/MEALS tab 01/04/18 Carvedilol [Coreg] 12.5 mg PO BID #180 tablet 01/04/18 Clopidogrel [Plavix] 75 mg PO DAILY #90 tab 01/04/18 Lisinopril [Zestril] 5 mg PO BID #180 tab 01/04/18 Nicotine 21Mg/24Hr Patch [Habitrol] 1 patch TRANSDERM DAILY #14 patch 01/04/18 Nitroglycerin Sl Tabs [Nitrostat] 0.4 mg SUBLINGUAL Q5M PRN #25 tab 01/04/18 Spironolactone [Aldactone] 25 mg PO DAILY #90 tab 01/04/18 Penicillin V Potassium [Pen Vee K] 500 mg PO QID 7 Days #28 tablet 01/19/19 Allergies Allergy/AdvReac Type Severity Reaction Status Date / Time No Known Allergies Allergy Verified 01/19/19 12:39 Review of Systems ROS Statement: Those systems with pertinent positive or pertinent negative responses have been documented in the HPI. ROS Other: All systems not noted in ROS Statement are negative. Past Medical History Past Medical History: GERD/Reflux, Hypertension Additional Past Medical History / Comment(s): Hiatal hernia, diverticular disease History of Any Multi-Drug Resistant Organisms: None Reported Past Surgical History: Tubal Ligation Additional Past Surgical History / Comment(s): EGD, colonoscopy Past Anesthesia/Blood Transfusion Reactions: No Reported Reaction Past Psychological History: Anxiety Smoking Status: Current every day smoker Past Alcohol Use History: Occasional Past Drug Use History: Marijuana - Past Family History Mother Family Medical History: No Reported History Additional Family Medical History / Comment(s): Mother had a MO and 3 vessel CABG at the age of 60 yrs. Father History Unknown: Yes Additional Family Medical History / Comment(s): father in a work related accident. General Exam - General Exam Comments Initial Comments: Constitutional: NAD, AOX3, Pt has pleasant affect. HEENT: NC/AT, trachea midline, neck supple, no lymphadenopathy. Posterior pharynx non erythematous, without exudates. External ears appear normal, without discharge. Mucous membranes moist. Eyes PERRLA, EOM intact. There is no scleral icterus. No pallor noted. Small abscess noted on left cheek inner mucosa. Purulent drainage was expressed through direct pressure. Was drained. Cardiopulmonary: RRR, no murmurs, rubs or gallops, no JVD noted. Lungs CTAB in anterior and posterior woodson. No peripheral edema. Abdominal exam: Abdomen soft and non-distended. Abdomen non-tender to palpation in all 4 quadrants. Bowel sounds active in LLQ. No hepatosplenomegaly. No ecchymosis Neuro: CN II-XII grossly intact. No nuchal rigidity. No raccon eyes, no weeks sign, no hemotympanum. No cervical spinal tenderness. MSK: No posterior calf tenderness bilaterally, homans sign negative bilaterally. Posterior tibialis and radial pulse +2 bilaterally. Sensation intact in upper and lower extremities. Full active ROM in upper and lower extremities, 5/5 stregnth. Limitations: no limitations Course Vital Signs 01/19/19 12:37 Temperature 98.0 F Pulse Rate 95 Respiratory 18 Rate Blood Pressure 162/100 O2 Sat by Pulse 98 Oximetry Medical Decision Making - Medical Decision Making 53-year-old female patient presents to the chief complaint of dental abscess present for 2 days. Patient vital signs are stable, afebrile. Physical exam d isplayed small dental abscess on her mucosa of cheek. Was drained via direct pressure. Culture was obtained. Patient was discharged with 7 days of penicillin VK. Will follow up with dentist, PCP, return to ER if condition worsens. Case discussed with Dr. Espino. Disposition Clinical Impression: Dental abscess Disposition: HOME SELF-CARE Condition: Stable Instructions (If sedation given, give patient instructions): Dental Abscess (ED) Additional Instructions: Patient to adhere to previously discussed treatment plan and will take medication(s) as directed. Patient to follow up with PCP in 1-2 days. Patient to return to ED if symptoms do not improve. Take antibiotics as directed. Follow-up with primary care provider and dentist tomorrow. Return to ER if condition worsens in any way. Prescriptions: Penicillin V Potassium [Pen Vee K] 500 mg PO QID 7 Days #28 tablet Is patient prescribed a controlled substance at d/c from ED?: No Referrals: Zhou Velazquez Jr, [Primary Care Provider] - 1-2 days Kenna Dinero DDS [STAFF PHYSICIAN] - 1-2 days Tavo Yousif DDS [STAFF PHYSICIAN] - 1-2 days Taya Griffin DDS [STAFF PHYSICIAN] - 1-2 days
== END 2019-01-19 13:40 | disposition home or self-care (01) ==
LOC: EC 11:54
DX: K04.7 Periapical abscess without sinus (principal); K21.9 Gastro-esophageal reflux disease without esophagitis; I10 Essential (primary) hypertension; F17.200 Nicotine dependence, unspecified, uncomplicated; Z79.899 Other long term (current) drug therapy
CPT/HCPCS: 87070; 87205; 99284

== ENCOUNTER → 2019-10-04 | Outpatient (CLI) | payer OTHER ==
--- NOTE | 2019-10-04 16:21 | XR ---
EXAMINATION TYPE: XR lumbosacral spine 5 views, XR Hip Complete 2 views LT DATE OF EXAM: 10/04/2019 COMPARISON: NONE HISTORY: 53-year-old female M54.5, low back pain radiating to the left leg FINDINGS: Lumbar spine: 5 mm right mid abdominal calcification. 5 lumbar type vertebral bodies. Facet arthropathy lower lumba r spine. No pars interarticularis defect. Moderate disc space narrowing L5-S1. Mild endplate spondylo sis mid lumbar spine. Vertebral body heights are preserved and alignment is maintained. Left hip: Left SI joint appears intact. Pubic symphysis is intact. Mild marginal spurring at the left hip. No a cute fracture, subluxation, or dislocation. IMPRESSION: 1. Lumbar spine: Hypertrophic facet arthropathy lower lumbar spine with moderate degenerative disc di sease at L5-S1. Mild degenerative disc disease elsewhere in the lumbar spine. No vertebral compressio n collapse or malalignment. 2. Left hip: Mild degenerative spurring. No acute osseous abnormality seen.
== END | disposition home or self-care (01) ==
LOC: RADXRMAIN 11:33
PROVIDERS: ATTEND Family Medicine
DX: M51.36 Other intervertebral disc degeneration, lumbar region (principal); M51.37 Other intervertebral disc degeneration, lumbosacral region; M47.816 Spondylosis without myelopathy or radiculopathy, lumbar region
CPT/HCPCS: 72110; 73502

== ENCOUNTER 2019-10-31 00:24 | Emergency (ER) | payer OTHER ==
[2019-10-31] MEDS ORDERED: SODIUM CHLORIDE 0.9% 1,000 ML IV STA (00:47)
[2019-10-31] MEDS ORDERED: ONDANSETRON 4 MG/2 ML VIAL IVP STA (00:47)
[2019-10-31] MEDS ORDERED: MORPHINE SULFATE 4 MG/ML SYRINGE IV STA (00:47)
[2019-10-31 01:10] LABS: Basophils % (A) 0 %; Eosinophils # (A) 0.1 k/uL (0-0.7); Eosinophils % (A) 1 %; HCT 36.3 % (34.0-46.0); HGB 11.9 gm/dL (11.4-16.0); Lymphocytes # (A) 0.8 k/uL (1.0-4.8); Lymphocytes % (A) 6 %; MCH 31.5 pg (25.0-35.0); MCHC 32.8 g/dL (31.0-37.0); Mean Platelet Volume 7.6; Monocytes # (A) 0.4 k/uL (0-1.0); Monocytes % (A) 3 %; Neutrophils # (A) 11.9 k/uL (1.3-7.7); Neutrophils % (A) 90 %; Platelet Count 193 k/uL (150-450); RBC 3.78 m/uL (3.80-5.40); RDW 14.1 % (11.5-15.5); WBC 13.3 k/uL (3.8-10.6)
[2019-10-31 01:22] LABS: ALT 16 U/L (4-34); AST 24 U/L (14-36); African American GFR (CKD) >90 (>60 ml/min/1.73 sqM); Albumin 4.1 g/dL (3.5-5.0); Alkaline Phosphatase 80 U/L (38-126); Anion Gap 4 mmol/L; Blood Urea Nitrogen 19 mg/dL (7-17); Carbon Dioxide 26 mmol/L (22-30); Chloride 104 mmol/L (98-107); Glucose 132 mg/dL (74-99); Non-African American GFR(CKD) 79 (>60 ml/min/1.73 sqM); Potassium 4.4 mmol/L (3.5-5.1); Sodium 134 mmol/L (137-145); Total Bilirubin 0.4 mg/dL (0.2-1.3); Total Protein 6.9 g/dL (6.3-8.2)
[2019-10-31 01:37] LABS: Appearance,Urine Cloudy (Clear); Bilirubin,Urine Negative (Negative); Blood,Urine Negative (Negative); Color,Urine Yellow; Glucose,Urine (UA) Negative (Negative); Hyaline Casts,Urine 24 /lpf (0-2); Ketones,Urine Negative (Negative); Leukocyte Esterase,Urine Trace (Negative); Mucus,Urine Rare /hpf; Nitrite,Urine Negative (Negative); Protein,Urine Negative (Negative); RBC,Urine <1 /hpf (0-5); Specific Gravity,Urine 1.022 (1.001-1.035); Squamous Epithelial Cell,Urine 3 /hpf (0-4); Urobilinogen,Urine <2.0 mg/dL (<2.0); WBC,Urine 3 /hpf (0-5)
--- NOTE | 2019-10-31 01:38 | CT ---
EXAMINATION TYPE: CT abdomen pelvis w con DATE OF EXAM: 10/31/2019 COMPARISON: None HISTORY: pain CT DLP: 1106.3 mGycm Automated exposure control for dose reduction was used. CONTRAST: Performed with IV Contrast, patient injected with 100 mL of Isovue 300. The lung bases are clear. There is no pleural effusion. Heart size is normal. There is no pericardial effusion. Liver spleen stomach pancreas gallbladder appear normal. Bile ducts are not dilated. There is no adre nal mass. Kidneys show satisfactory contrast opacification. There is no hydronephrosis. Ureters are n ot dilated. Delayed images show normal renal excretion. There is no retroperitoneal adenopathy. There are multiple diverticula in the sigmoid colon. Appendix is posterior and appears normal. There is so me mild wall thickening of the cecum. There is very minimal surrounding fat stranding. There is no free air. There is no ascites. There is no bowel obstruction. Lumbar vertebra have normal alignment. There is narrowing of L5-S1 disc space. There is spur formation of the endplates througho ut the lumbar spine. There is no compression fracture. Bony pelvis is intact. IMPRESSION: There is some sigmoid diverticulosis without diverticulitis. Mild wall thickening of the cecum suggestive of focal colitis. Normal appendix.
--- NOTE | 2019-10-31 01:45 | ED ---
General Adult HPI - General Chief complaint: Abdominal Pain Stated complaint: RT sided abdominal pain, vomiting Time Seen by Provider: 10/31/19 00:41 Source: patient, RN notes reviewed, old records reviewed Mode of arrival: ambulatory Limitations: no limitations - History of Present Illness Initial comments: 53-year-old female patient presents to ED for evaluation of abdominal pain. Patient was that she was at work when she developed right lower quadrant abdominal pain and describes it as sharp. It has any diarrhea. Does report that she had a little bit of nausea and vomiting which has since stopped. Denies any other areas of pain. Denies any other complaints. Systemic: Pt denies fatigue, fever/chills, rash. Pt denies weakness, night sweats, weight loss. Neuro: Pt denies headache, visual disturbances, syncope or pre-syncope. HEENT: Pt denies ocular discharge or irritation, otalgia, rhinorrhea, pharyngitis or notable lymphadenopathy. Cardiopulmonary: Pt denies chest pain, SOB, heart palpitations, dyspnea on exertion. Abdominal/GI: Pt denies diarrhea. : Pt denies dysuria, burning w/ urination, frequency/urgency. Denies new onset urinary or bowel incontinence. MSK: Pt denies myalgia, loss of strength or function in extremities. Neuro: Pt denies new onset weakness, paresthesias. - Related Data Home Medications Medication Instructions Recorded Confirmed Omeprazole 40 mg PO BID 01/02/18 01/02/18 Previous Rx's Medication Instructions Recorded Aspirin 81 mg PO DAILY chew 01/04/18 Atorvastatin [Lipitor] 40 mg PO DAILY #90 tab 01/04/18 Carvedilol [Coreg] 12.5 mg PO BID #180 tablet 01/04/18 Clopidogrel [Plavix] 75 mg PO DAILY #90 tab 01/04/18 Nicotine 21Mg/24Hr Patch [Habitrol] 1 patch TRANSDERM DAILY #14 patch 01/04/18 Nitroglycerin Sl Tabs [Nitrostat] 0.4 mg SUBLINGUAL Q5M PRN #25 tab 01/04/18 Spironolactone [Aldactone] 25 mg PO DAILY #90 tab 01/04/18 carvediloL [Coreg*] 12.5 mg PO BID-W/MEALS tab 01/04/18 lisinopriL [Zestril] 5 mg PO BID #180 tab 01/04/18 Penicillin V Potassium [Pen Vee K] 500 mg PO QID 7 Days #28 tablet 01/19/19 Allergies Allergy/AdvReac Type Severity Reaction Status Date / Time No Known Allergies Allergy Verified 10/31/19 00:37 Review of Systems ROS Statement: Those systems with pertinent positive or pertinent negative responses have been documented in the HPI. ROS Other: All systems not noted in ROS Statement are negative. Past Medical History Past Medical History: GERD/Reflux, Hypertension, Myocardial Infarction (OR) Additional Past Medical History / Comment(s): Hiatal hernia, diverticular dise ase History of Any Multi-Drug Resistant Organisms: None Reported Past Surgical History: Heart Catheterization, Tubal Ligation Additional Past Surgical History / Comment(s): EGD, colonoscopy Past Anesthesia/Blood Transfusion Reactions: No Reported Reaction Past Psychological History: Anxiety Smoking Status: Current every day smoker Past Alcohol Use History: Occasional Past Drug Use History: Marijuana - Past Family History Mother Family Medical History: No Reported History Additional Family Medical History / Comment(s): Mother had a [place] and 3 vessel CABG at the age of 60 yrs. Father History Unknown: Yes Additional Family Medical History / Comment(s): father in a work related accident. General Exam - General Exam Comments Initial Comments: Constitutional: NAD, AOX3, Pt has pleasant affect. HEENT: NC/AT, trachea midline, neck supple, no lymphadenopathy. Posterior pharynx non erythematous, without exudates. External ears appear normal, without discharge. Mucous membranes moist. Eyes PERRLA, EOM intact. There is no scleral icterus. No pallor noted. Cardiopulmonary: RRR, no murmurs, rubs or gallops, no JVD noted. Lungs CTAB in anterior and posterior woodson. No peripheral edema. Abdominal exam: Abdomen soft and non-distended. Abdomen mildly tender to palpation right lower quadrant region. Bowel sounds active in LLQ. No hepatosplenomegaly. No ecchymosis Neuro: CN II-XII grossly intact. No nuchal rigidity. MSK: Sensation intact in upper and lower extremities. Full active ROM in upper and lower extremities, 5/5 stregnth. Limitations: no limitations Course Vital Signs 10/31/19 00:34 Temperature 98.8 F Pulse Rate 82 Respiratory 16 Rate Blood Pressure 141/82 O2 Sat by Pulse 100 Oximetry Medical Decision Making - Medical Decision Making 53-year-old female patient presents to ED for evaluation of abdominal pain. Patient was that she was at work when she developed right lower quadrant abdom inal pain and describes it as sharp. It has any diarrhea. Does report that she had a little bit of nausea and vomiting which has since stopped. Denies any other areas of pain. Denies any other complaints. Pt VSS, afebrile. Physical exam tender to palpation right lower quadrant region. Laboratory investigations revealed mild leukocytosis. CT abdomen displays some colitis. Patient is well-controlled will discharge the patient call. Return precautions. Case discussed with Dr. Mark. - Lab Data Result diagrams: 10/31/19 01:01 10/31/19 01:01 Lab Results 10/31/19 10/31/19 10/31/19 Range/Units 01:01 01:01 01:01 WBC 13.3 H (3.8-10.6) k/uL RBC 3.78 L (3.80-5.40) m/uL Hgb 11.9 (11.4-16.0) gm/dL Hct 36.3 (34.0-46.0) % MCV 96.0 (80.0-100.0) fL MCH 31.5 (25.0-35.0) pg MCHC 32.8 (31.0-37.0) g/dL RDW 14.1 (11.5-15.5) % Plt Count 193 (150-450) k/uL Neutrophils % 90 % Lymphocytes % 6 % Monocytes % 3 % Eosinophils % 1 % Basophils % 0 % Neutrophils # 11.9 H (1.3-7.7) k/uL Lymphocytes # 0.8 L (1.0-4.8) k/uL Monocytes # 0.4 (0-1.0) k/uL Eosinophils # 0.1 (0-0.7) k/uL Basophils # 0.0 (0-0.2) k/uL Sodium 134 L (137-145) mmol/L Potassium 4.4 (3.5-5.1) mmol/L Chloride 104 (98-107) mmol/L Carbon Dioxide 26 (22-30) mmol/L Anion Gap 4 mmol/L BUN 19 H (7-17) mg/dL Creatinine 0.85 (0.52-1.04) mg/dL Est GFR (CKD-EPI)AfAm >90 (>60 ml/min/1.73 sqM) Est GFR (CKD-EPI)NonAf 79 (>60 ml/min/1.73 sqM) Glucose 132 H (74-99) mg/dL Plasma Lactic Acid [place] (0.7-2.0) mmol/L Calcium 9.0 (8.4-10.2) mg/dL Total Bilirubin 0.4 (0.2-1.3) mg/dL AST 24 (14-36) U/L ALT 16 (4-34) U/L Alkaline Phosphatase 80 (38-126) U/L Total Protein 6.9 (6.3-8.2) g/dL Albumin 4.1 (3.5-5.0) g/dL Lipase 99 (23-300) U/L Urine Color Yellow Urine Appearance Cloudy H (Clear) Urine pH 5.0 (5.0-8.0) Ur Specific [place] 1.022 (1.001-1.035) Urine Protein Negative (Negative) Urine Glucose (UA) Negative (Negative) Urine Ketones Negative (Negative) Urine Blood Negative (Negative) Urine Nitrite Negative (Negative) Urine Bilirubin Negative (Negative) Urine Urobilinogen <2.0 (<2.0) mg/dL Ur Leukocyte Esterase Trace H (Negative) Urine RBC <1 (0-5) /hpf Urine WBC 3 (0-5) /hpf Ur Squamous Epith Cells 3 (0-4) /hpf Hyaline Casts 24 H (0-2) /lpf Urine Mucus Rare H (None) /hpf 10/31/19 Range/Units 01:01 WBC (3.8-10.6) k/uL RBC (3.80-5.40) m/uL Hgb (11.4-16.0) gm/dL Hct (34.0-46.0) % MCV (80.0-100.0) fL MCH (25.0-35.0) pg MCHC (31.0-37.0) g/dL RDW (11.5-15.5) % Plt Count (150-450) k/uL Neutrophils % % Lymphocytes % % Monocytes % % Eosinophils % % Basophils % % Neutrophils # (1.3-7.7) k/uL Lymphocytes # (1.0-4.8) k/uL Monocytes # (0-1.0) k/uL Eosinophils # (0-0.7) k/uL Basophils # (0-0.2) k/uL Sodium (137-145) mmol/L Potassium (3.5-5.1) mmol/L Chloride (98-107) mmol/L Carbon Dioxide (22-30) mmol/L Anion Gap mmol/L BUN (7-17) mg/dL Creatinine (0.52-1.04) mg/dL Est GFR (CKD-EPI)AfAm (>60 ml/min/1.73 sqM) Est GFR (CKD-EPI)NonAf (>60 ml/min/1.73 sqM) Glucose (74-99) mg/dL Plasma Lactic Acid [place] 1.3 (0.7-2.0) mmol/L Calcium (8.4-10.2) mg/dL Total Bilirubin (0.2-1.3) mg/dL AST (14-36) U/L ALT (4-34) U/L Alkaline Phosphatase (38-126) U/L Total Protein (6.3-8.2) g/dL Albumin (3.5-5.0) g/dL Lipase (23-300) U/L Urine Color Urine Appearance (Clear) Urine pH (5.0-8.0) Ur Specific [place] (1.001-1.035) Urine Protein (Negative) Urine Glucose (UA) (Negative) Urine Ketones (Negative) Urine Blood (Negative) Urine Nitrite (Negative) Urine Bilirubin (Negative) Urine Urobilinogen (<2.0) mg/dL Ur Leukocyte Esterase (Negative) Urine RBC (0-5) /hpf Urine WBC (0-5) /hpf Ur Squamous Epith Cells (0-4) /hpf Hyaline Casts (0-2) /lpf Urine Mucus (None) /hpf Disposition Clinical Impression: Abdominal pain, Colitis Disposition: HOME SELF-CARE Condition: Stable Instructions (If sedation given, give patient instructions): Abdominal Pain (ED), Colitis (ED) Additional Instructions: Follow-up with primary care provider tomorrow. Return to ER if any worsening symptoms. Is patient prescribed a controlled substance at d/c from ED?: No Referrals: Zhou Velazquez Jr, [Primary Care Provider] - 1-2 days
[2019-10-31] MEDS ORDERED: HYDROmorphone 0.5 MG/0.5 ML SYRINGE IVP STA (02:08)
[2019-10-31 03:23] VITALS: BP 106/62; PULSE 88; RESP 18; TEMP 98.3
== END 2019-10-31 03:23 | disposition home or self-care (01) ==
LOC: EC 00:24
DX: K52.9 Noninfective gastroenteritis and colitis, unspecified (principal); F17.200 Nicotine dependence, unspecified, uncomplicated; K21.9 Gastro-esophageal reflux disease without esophagitis; I25.2 Old myocardial infarction; Z79.899 Other long term (current) drug therapy; Z95.5 Presence of coronary angioplasty implant and graft
CPT/HCPCS: 36415; 80053; 83605; 83690; 85025; 81001; 74177; 99285; 96374; 96375 ×2; 96361 ×2; J2270; J2405; J1170; Q9967

== ENCOUNTER 2020-09-27 12:21 | Inpatient (IN) | payer OTHER ==
[2020-09-27] MEDS ORDERED: ASPIRIN 81 MG PO STA (13:28)
[2020-09-27] MEDS ORDERED: NITROGLYCERIN OINT 1 INCH/GM PACKET TOPICAL STA (13:28)
--- NOTE | 2020-09-27 13:43 | ED ---
General Adult HPI - General Chief complaint: Chest Pain Stated complaint: chest pain Time Seen by Provider: 09/27/20 12:25 Source: patient, RN notes reviewed, old records reviewed Mode of arrival: ambulatory - History of Present Illness Initial comments: This a 54-year-old female has past medical history significant for an VT high blood pressure high cholesterol. Patient states at 11:00 he started having chest pain she took 2 nitroglycerin and there was no improvement. Patient states she's mild short of breath. Patient denies any diaphoretic episodes. Patient any nausea. Patient denies any palpitations. Patient denies any lightheadedness or dizziness. Patient denies any recent fever chills or cough. Patient denies any abdominal pain patient denies nausea vomiting diarrhea. - Related Data Home Medications Medication Instructions Recorded Confirmed Omeprazole 40 mg PO BID 01/02/18 01/02/18 Previous Rx's Medication Instructions Recorded Aspirin 81 mg PO DAILY chew 01/04/18 Atorvastatin [Lipitor] 40 mg PO DAILY #90 tab 01/04/18 Carvedilol [Coreg] 12.5 mg PO BID #180 tablet 01/04/18 Clopidogrel [Plavix] 75 mg PO DAILY #90 tab 01/04/18 Nicotine 21Mg/24Hr Patch [Habitrol] 1 patch TRANSDERM DAILY #14 patch 01/04/18 Nitroglycerin Sl Tabs [Nitrostat] 0.4 mg SUBLINGUAL Q5M PRN #25 tab 01/04/18 Spironolactone [Aldactone] 25 mg PO DAILY #90 tab 01/04/18 carvediloL [Coreg*] 12.5 mg PO BID-W/MEALS tab 01/04/18 lisinopriL [Zestril] 5 mg PO BID #180 tab 01/04/18 Penicillin V Potassium [Pen Vee K] 500 mg PO QID 7 Days #28 tablet 01/19/19 Allergies Allergy/AdvReac Type Severity Reaction Status Date / Time No Known Allergies Allergy Verified 09/27/20 12:26 Review of Systems ROS Statement: Those systems with pertinent positive or pertinent negative responses have been documented in the HPI. ROS Other: All systems not noted in ROS Statement are negative. Past Medical History Past Medical History: GERD/Reflux, Hypertension, Myocardial Infarction ([place]) Additional Past Medical History / Comment(s): Hiatal hernia, diverticular disease History of Any Multi-Drug Resistant Organisms: None Reported Past Surgical History: Heart Catheterization, Tubal Ligation Additional Past Surgical History / Comment(s): EGD, colonoscopy Past Anesthesia/Blood Transfusion Reactions: No Reported Reaction Past Psychological History: Anxiety Smoking Status: Current every day smoker Past Alcohol Use History: Occasional Past Drug Use History: Marijuana - Past Family History Mother Family Medical History: No Reported History Additional Family Medical History / Comment(s): Mother had a VT and 3 vessel CABG at the age of 60 yrs. Father History Unknown: Yes Additional Family Medical History / Comment(s): father in a work related accident. General Exam - General Exam Comments Initial Comments: GENERAL: Patient is well-developed and well-nourished. Patient is nontoxic and well- hydrated and is in mild distress. ENT: Neck is soft and supple. No significant lymphadenopathy is noted. Oropharynx is clear. Moist mucous membranes. Neck has full range of motion without eliciting any pain. EYES: The sclera were anicteric and conjunctiva were pink and moist. Extraocular movements were intact and pupils were equal round and reactive to light. Eyelids were unremarkable. PULMONARY: Unlabored respirations. Good breath sounds bilaterally. No audible rales rhonchi or wheezing was noted. CARDIOVASCULAR: There is a regular rate and rhythm without any murmurs gallops or rubs. ABDOMEN: Soft and nontender with normal bowel sounds. SKIN: Skin is clear with no lesions or rashes and otherwise unremarkable. NEUROLOGIC: Patient is alert and oriented x3. Cranial nerves II through XII are grossly intact. Motor and sensory are also intact. Normal speech, volume and content. Symmetrical smile. MUSCULOSKELETAL: Normal extremities with adequate strength and full range of motion. No lower extremity swelling or edema. No calf tenderness. LYMPHATICS: No significant lymphadenopathy is noted PSYCHIATRIC: Normal psychiatric evaluation. Course Vital Signs 09/27/20 09/27/20 12:22 15:09 Temperature 97.7 F Pulse Rate 93 69 Respiratory 18 20 Rate Blood Pressure 85/60 97/50 O2 Sat by Pulse 98 98 Oximetry Medical Decision Making - Medical Decision Making EKG shows normal sinus rhythm at 83 bpm NC interval 288 QRSs 84 Q-T intervals 44 QTC is 474. Patient's EKG shows no ST segment elevation or depression. Chest x-ray shows no acute abnormality. I spoke with Dr. emerson he agrees to admit the patient admitted the patient wrote admitting orders. - Lab Data Result diagrams: 09/27/20 13:39 09/27/20 13:39 Lab Results 09/27/20 09/27/20 09/27/20 Range/Units 13:39 13:39 13:39 WBC 7.6 (3.8-10.6) k/uL RBC 4.60 (3.80-5.40) m/uL Hgb 13.6 (11.4-16.0) gm/dL Hct 41.0 (34.0-46.0) % MCV 89.1 (80.0-100.0) fL MCH 29.6 (25.0-35.0) pg MCHC 33.2 (31.0-37.0) g/dL RDW 15.1 (11.5-15.5) % Plt Count 235 (150-450) k/uL MPV 8.4 Neutrophils % 72 % Lymphocytes % 20 % Monocytes % 4 % Eosinophils % 2 % Basophils % 1 % Neutrophils # 5.4 (1.3-7.7) k/uL Lymphocytes # 1.5 (1.0-4.8) k/uL Monocytes # 0.3 (0-1.0) k/uL Eosinophils # 0.1 (0-0.7) k/uL Basophils # 0.0 (0-0.2) k/uL PT (9.0-12.0) sec INR (<1.2) APTT (22.0-30.0) sec Sodium 133 L (137-145) mmol/L Potassium 4.6 (3.5-5.1) mmol/L Chloride 99 (98-107) mmol/L Carbon Dioxide 18 L (22-30) mmol/L Anion Gap 16 mmol/L BUN 56 H (7-17) mg/dL Creatinine 4.74 H (0.52-1.04) mg/dL Est GFR (CKD-EPI)AfAm 11 (>60 ml/min/1.73 sqM) Est GFR (CKD-EPI)NonAf 10 (>60 ml/min/1.73 sqM) Glucose 111 H (74-99) mg/dL Calcium 9.4 (8.4-10.2) mg/dL Magnesium 1.8 (1.6-2.3) mg/dL Total Bilirubin 0.5 (0.2-1.3) mg/dL AST 29 (14-36) U/L ALT 20 (4-34) U/L Alkaline Phosphatase 83 (38-126) U/L Troponin I <0.012 (0.000-0.034) ng/mL Total Protein 7.8 (6.3-8.2) g/dL Albumin 4.8 (3.5-5.0) g/dL Urine Color Urine Appearance (Clear) Urine pH (5.0-8.0) Ur Specific Clare (1.001-1.035) Urine Protein (Negative) Urine Glucose (UA) (Negative) Urine Ketones (Negative) Urine Blood (Negative) Urine Nitrite (Negative) Urine Bilirubin (Negative) Urine Urobilinogen (<2.0) mg/dL Ur Leukocyte Esterase (Negative) Urine RBC (0-5) /hpf Urine WBC (0-5) /hpf Ur Squamous Epith Cells (0-4) /hpf Urine Bacteria (None) /hpf Hyaline Casts (0-2) /lpf Urine Mucus (None) /hpf 09/27/20 09/27/20 Range/Units 14:18 16:18 WBC (3.8-10.6) k/uL RBC (3.80-5.40) m/uL Hgb (11.4-16.0) gm/dL Hct (34.0-46.0) % MCV (80.0-100.0) fL MCH (25.0-35.0) pg MCHC (31.0-37.0) g/dL RDW (11.5-15.5) % Plt Count (150-450) k/uL MPV Neutrophils % % Lymphocytes % % Monocytes % % Eosinophils % % Basophils % % Neutrophils # (1.3-7.7) k/uL Lymphocytes # (1.0-4.8) k/uL Monocytes # (0-1.0) k/uL Eosinophils # (0-0.7) k/uL Basophils # (0-0.2) k/uL PT 10.9 (9.0-12.0) sec INR 1.0 (<1.2) APTT 22.8 (22.0-30.0) sec Sodium (137-145) mmol/L Potassium (3.5-5.1) mmol/L Chloride (98-107) mmol/L Carbon Dioxide (22-30) mmol/L Anion Gap mmol/L BUN (7-17) mg/dL Creatinine (0.52-1.04) mg/dL Est GFR (CKD-EPI)AfAm (>60 ml/min/1.73 sqM) Est GFR (CKD-EPI)NonAf (>60 ml/min/1.73 sqM) Glucose (74-99) mg/dL Calcium (8.4-10.2) mg/dL Magnesium (1.6-2.3) mg/dL Total Bilirubin (0.2-1.3) mg/dL AST (14-36) U/L ALT (4-34) U/L Alkaline Phosphatase (38-126) U/L Troponin I (0.000-0.034) ng/mL Total Protein (6.3-8.2) g/dL Albumin (3.5-5.0) g/dL Urine Color Yellow Urine Appearance Cloudy H (Clear) Urine pH 5.0 (5.0-8.0) Ur Specific Clare 1.025 (1.001-1.035) Urine Protein Trace H (Negative) Urine Glucose (UA) Negative (Negative) Urine Ketones Negative (Negative) Urine Blood Negative (Negative) Urine Nitrite Negative (Negative) Urine Bilirubin 1+ H (Negative) Urine Urobilinogen 2.0 (<2.0) mg/dL Ur Leukocyte Esterase Large H (Negative) Urine RBC 7 H (0-5) /hpf Urine WBC 14 H (0-5) /hpf Ur Squamous Epith Cells 25 H (0-4) /hpf Urine Bacteria Rare H (None) /hpf Hyaline Casts 54 H (0-2) /lpf Urine Mucus Rare H (None) /hpf Disposition Clinical Impression: Chest pain, Acute renal failure Disposition: ADMITTED IP TO THIS HOSP Referrals: Zhou Velazquez Jr, [Primary Care Provider] - 1-2 days Time of Disposition: 17:43
[2020-09-27 13:49] LABS: Basophils % (A) 1 %; Eosinophils # (A) 0.1 k/uL (0-0.7); Eosinophils % (A) 2 %; HGB 13.6 gm/dL (11.4-16.0); Lymphocytes # (A) 1.5 k/uL (1.0-4.8); Lymphocytes % (A) 20 %; MCH 29.6 pg (25.0-35.0); MCHC 33.2 g/dL (31.0-37.0); MCV 89.1 fL (80.0-100.0); Mean Platelet Volume 8.4; Monocytes # (A) 0.3 k/uL (0-1.0); Monocytes % (A) 4 %; Neutrophils # (A) 5.4 k/uL (1.3-7.7); Neutrophils % (A) 72 %; Platelet Count 235 k/uL (150-450); RDW 15.1 % (11.5-15.5); WBC 7.6 k/uL (3.8-10.6)
[2020-09-27 14:00] LABS: Albumin 4.8 g/dL (3.5-5.0); Calcium 9.4 mg/dL (8.4-10.2); Magnesium 1.8 mg/dL (1.6-2.3); Potassium 4.6 mmol/L (3.5-5.1); Total Bilirubin 0.5 mg/dL (0.2-1.3); Total Protein 7.8 g/dL (6.3-8.2)
--- NOTE | 2020-09-27 14:02 | XR ---
EXAMINATION TYPE: XR chest 2V DATE OF EXAM: 09/27/2020 COMPARISON: 01/02/18 HISTORY: Shortness of breath TECHNIQUE: Frontal and lateral views of the chest are obtained. FINDINGS: Scattered senescent parenchymal changes noted. Hyperinflation compatible with COPD. No evidence for infiltrate. No evidence for atelectasis. Heart size is stable. Mediastinal structures are stable and grossly unremarkable. No evidence for hilar prominence. Degenerative changes dorsal spine. IMPRESSION: 1. No evidence for acute pulmonary disease.
[2020-09-27] MEDS ORDERED: MORPHINE SULFATE 2 MG/ML SYRINGE IVP STA (15:06)
[2020-09-27 15:37] LABS: Partial Thromboplastin Time 22.8 sec (22.0-30.0); Prothrombin Time 10.9 sec (9.0-12.0)
[2020-09-27 16:29] LABS: Appearance,Urine Cloudy (Clear); Bacteria,Urine Rare /hpf; Bilirubin,Urine 1+ (Negative); Blood,Urine Negative (Negative); Color,Urine Yellow; Glucose,Urine (UA) Negative (Negative); Hyaline Casts,Urine 54 /lpf (0-2); Ketones,Urine Negative (Negative); Leukocyte Esterase,Urine Large (Negative); Mucus,Urine Rare /hpf; Nitrite,Urine Negative (Negative); Protein,Urine Trace (Negative); RBC,Urine 7 /hpf (0-5); Specific Gravity,Urine 1.025 (1.001-1.035); Squamous Epithelial Cell,Urine 25 /hpf (0-4); WBC,Urine 14 /hpf (0-5)
[2020-09-27] MEDS ORDERED: NITROGLYCERIN SL TABS 0.4 MG TAB SUBLINGUAL PRN (17:44)
[2020-09-27] MEDS: NITROGLYCERIN OINT 1 INCH/GM PACKET TOPICAL SCH ×2 (19:45→23:43)
[2020-09-27] MEDS ORDERED: MORPHINE SULFATE 2 MG/ML SYRINGE IVP PRN (20:26)
[2020-09-27] MEDS: SODIUM CHLORIDE 0.9% 1,000 ML IV SCH (22:21)
--- NOTE | 2020-09-28 00:30 | US ---
EXAMINATION TYPE: US kidneys/renal and bladder DATE OF EXAM: 09/28/2020 COMPARISON: CT 2019 CLINICAL HISTORY: elevated BUN and CR. Elevated BUN and CR. EXAM MEASUREMENTS: Right Kidney: 11.9 x 5.1 x 5.9 cm Left Kidney: 9.9 x 5.7 x 5.0 cm Right Kidney: Measures upper limits of normal. Hyperechoic focus seen lower pole measuring 0.6 x 0.5 x 0.3 cm. Left Kidney: No hydronephrosis or masses seen Bladder: Not distended. Unable to evaluate. Bilateral Jets seen: No IMPRESSION: No evidence of renal mass or obstruction. Urinary bladder not evaluated.
[2020-09-28] MEDS ORDERED: SODIUM CHLORIDE 0.9% 1,000 ML IV ONE (01:19)
--- NOTE | 2020-09-28 02:30 | P.EN ---
A team note Activated due to hypertension. Reviewed the patient's chart and discussed the case with RN. The patient was admitted to the medicine service due to complaints of chest pain and dizziness. She was also found to have acute kidney injury. The patient reported that she had been feeling lightheaded at home for the past 5 days, and that multiple blood pressure checks had revealed low BP at home, though she continued taking her antihypertensives. The patient received a total of 2 L of IV fluids since admission. The patient denied fever, chills, shortness of breath, cough, sore throat, or dysuria. She also denied nausea, vomiting, abdominal pain, diarrhea, headaches, weakness, numbness, tingling. At time of evaluation, the patient's vitals were BP 91/54, pulse 95, SpO2 97% on room air, and temperature 98.1F. General: Non-toxic, in no acute distress, appears stated age, obese HEENT: NC/AT, anicteric sclerae, moist conjunctiva, no lid-lag, PERRLA Cardiovascular: S1/S2 wnl, no murmurs, rubs, or gallops Lungs: Some bibasilar rales, normal respiratory effort, no accessory muscle use Abdominal: Soft, non-tender, non-distended, no guarding, rebound, or rigidity Skin: Warm, dry Extremities: No edema or contractures Psychiatric: Alert and oriented to person, place and time, appropriate affect Neuro: CN II-XII grossly intact, Strength 5/5 in all 4 extremities, Speech intact, Sensation to light touch grossly intact throughout Assessment/plan Hypotension -Suspected secondary to overdiuresis in setting of dual diuretic use -1 L of normal saline bolus ordered -Patient continues to be afebrile since her presentation -Primary team notified Total time spent providing critical care for this patient: 35 minutes
[2020-09-28] MEDS: NITROGLYCERIN OINT 1 INCH/GM PACKET TOPICAL SCH ×4 (05:13→23:04)
[2020-09-28] MEDS ORDERED: ASPIRIN 325 MG TAB PO SCH (09:00)
[2020-09-28 09:10] LABS: Chol/HDL Ratio 6.63; LDL Cholesterol,Calculated 87.4 mg/dL (0.0-131.0); VLDL Calculation 47.6 mg/dL (5.00-40.00)
--- NOTE | 2020-09-28 10:22 | P.HPIM ---
History of Present Illness H&P Date: 09/28/20 Chief Complaint: Chest pain This is a 54-year-old female patient of my partner. She has a history of myocardial infarction 3 years ago. She currently takes home medications h ydrochlorothiazide, spironolactone, lisinopril, gabapentin, aspirin, tramadol, omeprazole, and when necessary nitroglycerin tabs. She reports yesterday having midthoracic back pain along with chest pain became severe enough to bring her to the emergency room. She is concerned about a repeat microinfarction. Troponins were negative, however she is found to have a significantly elevated BUN and creatinine consistent with acute renal failure. Her GFR is 10. She denies taking any herbal supplements, multivitamins, nonsteroidal anti-inflammatories, her anything else other than her current medic ations. She denies any shortness of breath, nausea vomiting, blood in her stool, black stool, bloody urine, trouble urinating. Overnight she was hypotensive and required fluid resuscitation. This a.m. she feels much improved.v blood pressure is now stable Review of Systems All systems: negative Past Medical History Past Medical History: GERD/Reflux, Hypertension, Myocardial Infarction ([place]) Additional Past Medical History / Comment(s): Hiatal hernia, diverticular disease Last Myocardial Infarction Date:: 2017 History of Any Multi-Drug Resistant Organisms: None Reported Past Surgical History: Heart Catheterization, Tubal Ligation Additional Past Surgical History / Comment(s): EGD, colonoscopy Past Anesthesia/Blood Transfusion Reactions: No Reported Reaction Past Psychological History: Anxiety Additional Psychological History / Comment(s): Pt resides with hre spouse. 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 She is independent. Smoking Status: Current every day smoker Past Alcohol Use History: Occasional Additional Past Alcohol Use History / Comment(s): Pt started smoking in 1978 and is less than a ppd smoker. Past Drug Use History: Marijuana - Past Family History Mother Family Medical History: No Reported History Additional Family Medical History / Comment(s): Mother had a [place] and 3 vessel CABG at the age of 60 yrs. Father History Unknown: Yes Additional Family Medical History / Comment(s): father in a work related accident. Medications and Allergies Home Medications Medication Instructions Recorded Confirmed Type Omeprazole 20 mg PO BID 01/02/18 09/27/20 History Spironolactone [Aldactone] 25 mg PO DAILY #90 tab 01/04/18 09/27/20 Rx Aspirin EC [Ecotrin Low Dose] 81 mg PO DAILY 09/27/20 09/27/20 History Atorvastatin [Lipitor] 40 mg PO HS 09/27/20 09/27/20 History Gabapentin 600 mg PO BID 09/27/20 09/27/20 History LORazepam [Ativan] 0.5 mg PO Q8H PRN 09/27/20 09/27/20 History Lisinopril [Prinivil] 10 mg PO BID 09/27/20 09/27/20 History Nitroglycerin Sl Tabs [Nitrostat] 0.4 mg SL Q5M PRN 09/27/20 09/27/20 History hydroCHLOROthiazide [Hydrodiuril] 25 mg PO DAILY 09/27/20 09/27/20 History methocarbamoL [Robaxin] 500 mg PO TID 09/27/20 09/27/20 History traMADol HCL 50 mg PO QID 09/27/20 09/27/20 History Allergies Allergy/AdvReac Type Severity Reaction Status Date / Time No Known Allergies Allergy Verified 09/27/20 21:31 Physical Exam Vitals: Vital Signs Temp Pulse Pulse Resp BP BP Pulse Ox 09/28/20 06:07 96/59 09/28/20 05:37 94/56 09/28/20 05:07 90/55 09/28/20 04:37 96/60 09/28/20 04:07 88/54 09/28/20 03:52 85/50 09/28/20 03:37 98.1 F 75 16 85/51 96 09/28/20 03:22 73/40 09/28/20 03:07 93/52 09/28/20 02:52 75/42 09/28/20 02:37 81/45 09/28/20 02:22 76/39 09/28/20 02:07 74/39 09/28/20 01:52 84/49 09/28/20 01:37 71/35 09/28/20 01:22 86/49 09/28/20 01:15 91/54 09/28/20 00:59 75/39 09/28/20 00:46 78/43 09/28/20 00:36 86/49 09/28/20 00:27 74/38 09/28/20 00:13 119/51 09/28/20 00:03 70/37 09/27/20 23:45 75/40 09/27/20 23:30 77/43 09/27/20 23:15 72/37 09/27/20 23:00 98.2 F 70 18 77/44 95 09/27/20 20:35 98.0 F 84 18 96/53 98 09/27/20 18:02 75 20 95/60 96 09/27/20 18:00 97.8 F 75 16 83/51 99 09/27/20 15:09 69 20 97/50 98 09/27/20 12:22 97.7 F 93 18 85/60 98 Intake and Output 09/27/20 09/28/20 09/28/20 22:59 06:59 14:59 Intake Total 2000 240 Output Total 400 450 Balance 1600 -210 Intake: Intake, IV Titration 2000 Amount Sodium Chloride 0.9% 1, 1000 000 ml @ 100 mls/hr IV . Q10H [facility] Rx#:[id number] Sodium Chloride 0.9% 1, 1000 000 ml @ 999 mls/hr IV . Q1H1M [facility] Rx#:[id number] Oral 240 Output: Urine 400 450 Other: # Voids 1 Weight 83.915 kg 69 kg GENERAL: Fatigued, well-nourished and in no acute distress. HEAD: Atraumatic, normocephalic. EYES: Pupils equal round and reactive to light, extraocular movements intact, sclera anicteric, conjunctiva are normal. ENT:nares patent, oropharynx clear without exudates. Moist mucous membranes. NECK: Normal range of motion, supple without lymphadenopathy or JVD, no thyromegaly LUNGS: Breath sounds clear to auscultation bilaterally and equal. No wheezes ra les or rhonchi. HEART: Regular rate and rhythm without murmurs, rubs or gallops.S1S2 Normal ABDOMEN: Soft, nontender, normoactive bowel sounds. No guarding, no rebound. No masses appreciated. EXTREMITIES: Normal range of motion, no pitting or edema. No clubbing or cyanosis. NEUROLOGICAL: Cranial nerves II through XII grossly intact. Normal speech, normal gait. PSYCH: Normal mood, normal affect. SKIN: Warm, Dry, normal turgor, no rashes or lesions noted. Results CBC & Chem 7: 09/27/20 13:39 09/27/20 13:39 Labs: Abnormal Lab Results - Last 24 Hours (Table) 09/27/20 09/27/20 09/28/20 Range/Units 13:39 16:18 02:25 Sodium 133 L (137-145) mmol/L Carbon Dioxide 18 L (22-30) mmol/L BUN 56 H (7-17) mg/dL Creatinine 4.74 H (0.52-1.04) mg/dL Glucose 111 H (74-99) mg/dL Triglycerides 238.0 H (0.0-149.0) mg/dL VLDL Cholesterol, Calc 47.60 H (5.00-40.00) mg/dL HDL Cholesterol 24.0 L (40.0-60.0) mg/dL Urine Appearance Cloudy H (Clear) Urine Protein Trace H (Negative) Urine Bilirubin 1+ H (Negative) Ur Leukocyte Esterase Large H (Negative) Urine RBC 7 H (0-5) /hpf Urine WBC 14 H (0-5) /hpf Ur Squamous Epith Cells 25 H (0-4) /hpf Urine Bacteria Rare H (None) /hpf Hyaline Casts 54 H (0-2) /lpf Urine Mucus Rare H (None) /hpf Microbiology - Last 24 Hours (Table) 09/27/20 16:18 Urine Culture - Preliminary Urine,Clean Catch Chest x-ray: report reviewed US - abdomen: report reviewed Thrombosis Risk Factor Assmnt - DVT/VTE Prophylaxis DVT/VTE Prophylaxis: Low risk, early ambulation encouraged - Choose All That Apply Any of the Below Risk Factors Present?: Yes Each Factor Represents 1 point: Age 41-60 years Thrombosis Risk Factor Assessment Total Risk Factor Score: 1 Thrombosis Risk Factor Assessment Level: Low Risk Assessment and Plan (1) H/O acute myocardial infarction Current Visit: Yes Status: Acute Code(s): I25.2 - OLD MYOCARDIAL INFARCTION SNOMED Code(s): 531444461 (2) Mixed hyperlipidemia Current Visit: Yes Status: Acute Code(s): E78.2 - MIXED HYPERLIPIDEMIA SNOMED Code(s): 549596879 (3) GERD (gastroesophageal reflux disease) Current Visit: Yes Status: Acute Code(s): K21.9 - GASTRO-ESOPHAGEAL REFLUX DISEASE WITHOUT ESOPHAGITIS SNOMED Code(s): 302252339 (4) Back pain Current Visit: Yes Status: Acute Code(s): M54.9 - DORSALGIA, UNSPECIFIED SNOMED Code(s): 066785724 (5) Acute renal failure Current Visit: Yes Status: Acute Code(s): N17.9 - ACUTE KIDNEY FAILURE, UNSPECIFIED SNOMED Code(s): 73816965 (6) Chest pain Current Visit: Yes Status: Acute Code(s): R07.9 - CHEST PAIN, UNSPECIFIED SNOMED Code(s): 40991172 (7) Essential (primary) hypertension Current Visit: No Status: Acute Code(s): I10 - ESSENTIAL (PRIMARY) HYPERTENSION SNOMED Code(s): 62576872 (8) Systolic congestive heart failure Current Visit: No Status: Acute Code(s): I50.20 - UNSPECIFIED SYSTOLIC (CONGESTIVE) HEART FAILURE SNOMED Code(s): 89689351 Plan: She'll continue on IV fluids of 100 mL per hour. Repeat labs in a.m. Consults nephrology. We'll consult cardiology as her medications may need to be adjusted. Suspected and accommodation the diuretics
[2020-09-28] MEDS ORDERED: MIDODRINE 5 MG TAB PO ONE (11:00)
[2020-09-28] MEDS: LIDOCAINE 5% PATCH TOPICAL SCH (12:11)
[2020-09-28] MEDS: SODIUM CHLORIDE 0.9% 1,000 ML IV SCH ×2 (12:12→22:53)
[2020-09-28 15:16] LABS: African American GFR (CKD) 13.1 (60.0-200.0); Calcium 7.3 mg/dL (8.7-10.3); Non-African American GFR(CKD) 11.3 (60.0-200.0)
[2020-09-28] MEDS: HYDROcodone/APAP 5-325MG 1 EACH TAB PO PRN (19:09)
--- NOTE | 2020-09-28 20:26 | CONS ---
CONSULTATION REASON FOR CONSULT: Renal failure. HISTORY OF PRESENT ILLNESS: Patient is a 54-year-old female who was admitted to the hospital with complaints of increased weakness. She was noted to have significant hypotension with blood pressure in the 70s systolic. The patient has a history of hypertension and is maintained on EULALIA inhibitors at home. The patient states that she did not check her blood pressure recently. She denied any significant nausea, vomiting, abdominal pain or diarrhea. No fever, chills or cough. The patient denies use of any nonsteroidal anti-inflammatory agents. There is no prior history of kidney diseases. On admission creatinine was 4.74 and review of previous labs shows a creatinine of 0.85 on 10/31/2019. The patient did notice some decrease in urine output. She is currently maintained on IV fluids. She states her urine output has improved. PAST MEDICAL HISTORY: Significant for hypertension, gastroesophageal reflux disease, coronary artery disease, history of AL. PAST SURGICAL HISTORY: Cardiac catheterization, tubal ligation, EGD, colonoscopy. SOCIAL HISTORY: Positive for smoking. Occasional use of alcohol and marijuana. No other drug abuse. MEDICATIONS: Medications at home prior to admission include omeprazole, Aldactone, aspirin, Lipitor, gabapentin, Ativan, Prinivil, Nitrostat, HydroDIURIL, Robaxin, tramadol. ALLERGIES: None. EXAMINATION: Patient is comfortable, awake, not in any acute distress. Alert, oriented x3. Blood pressure was 91/46, heart rate 77 per minute. Patient is afebrile. Examination of the heart S1, S2. Examination of lungs bilateral breath sounds are heard. Abdomen is soft, nontender. Examination of lower extremities shows no significant edema. FELT COVERER exam grossly intact. LAB: Show sodium 133, potassium 4.6, chloride 99, CO2 is 18, BUN 56, serum creatinine 4.74. UA shows large leukocyte esterase, WBCs 14, trace protein, no blood is noted. ASSESSMENT: 1. Acute kidney injury secondary to hypotension, hypoperfusion, nonoliguric maintained on IV fluids. I will continue to hold off on blood pressure medications. I will give one dose of midodrine. If patient remains hypotensive, check serum cortisol level if not done yet. 2. Metabolic acidosis and anion gap associated with renal failure. 3. Pyuria, rule out urinary tract infection. 4. History of coronary artery disease and myocardial infarction. PLAN: Midodrine x1. Continue to hold antihypertensive medications. Check random cortisol level. Continue with IV fluids and repeat labs in today and in a.m. Thank you for this consultation. Will continue to follow the patient with you during her hospitalization. XIOMARA / HALIE: [id number] /
[2020-09-29] MEDS: NITROGLYCERIN OINT 1 INCH/GM PACKET TOPICAL SCH (05:18)
[2020-09-29] MEDS: ASPIRIN 81 MG PO SCH (08:26)
[2020-09-29] MEDS: LIDOCAINE 5% PATCH TOPICAL SCH (08:26)
[2020-09-29] MEDS: SODIUM CHLORIDE 0.9% 1,000 ML IV SCH ×2 (08:27→19:39)
[2020-09-29 08:33] LABS: Basophils % (A) 0 %; Eosinophils # (A) 0.1 k/uL (0-0.7); Eosinophils % (A) 3 %; HCT 35.8 % (34.0-46.0); HGB 11.6 gm/dL (11.4-16.0); Lymphocytes # (A) 1.3 k/uL (1.0-4.8); Lymphocytes % (A) 32 %; MCH 29.1 pg (25.0-35.0); MCHC 32.3 g/dL (31.0-37.0); MCV 90.1 fL (80.0-100.0); Mean Platelet Volume 8.8; Monocytes # (A) 0.2 k/uL (0-1.0); Monocytes % (A) 5 %; Neutrophils # (A) 2.3 k/uL (1.3-7.7); Neutrophils % (A) 57 %; Platelet Count 157 k/uL (150-450); RBC 3.97 m/uL (3.80-5.40); RDW 14.4 % (11.5-15.5)
[2020-09-29 08:56] LABS: African American GFR (CKD) >90 (>60 ml/min/1.73 sqM); Anion Gap 5 mmol/L; Blood Urea Nitrogen 26 mg/dL (7-17); Calcium 9.4 mg/dL (8.4-10.2); Carbon Dioxide 25 mmol/L (22-30); Chloride 109 mmol/L (98-107); Glucose 107 mg/dL (74-99); Non-African American GFR(CKD) 81 (>60 ml/min/1.73 sqM); Potassium 4.6 mmol/L (3.5-5.1); Sodium 139 mmol/L (137-145)
[2020-09-29] MEDS ORDERED: METOPROLOL TARTRATE 12.5 MG TAB PO SCH (10:15)
--- NOTE | 2020-09-29 10:23 | P.CRDCN ---
History of Present Illness History of present illness: HISTORY OF PRESENTING ILLNESS This is a pleasant 54-year-old female past medical history significant for ischemic cardiomyopathy, coronary artery disease, hypertension, dyslipidem ia, chronic nicotine dependence and chronic systolic heart failure. She follows in the office with Dr. Soriano. We have been asked to see in consultation for chest pain. She states while at work yesterday around 1045 she was standing up making sandwiches when she had an acute onset of chest tightness in the left precordial region that radiated through to her back. Associated with dizziness/lightheadedness. No shortness of breath, palpitations, nausea or vomiting. She took 2 SL nitro with no relief. On arrival to ER she was having ongoing chest pain. Currently chest pain free. On arrival she was noted to be hypotensive with blood pressures as low as 70 systolic. She has been initiated on IV fluid replacement and her medications have been held. DIAGNOSTICS EKG reveals sinus mechanism, right axis deviation and poor R-wave progression. Telemetry tracings indicate sinus mechanism. Chest xray negative for an acute cardiopulmonary process. Laboratory reviewed, CBC unremarkable, sodium 139, potassium 4.6, creatinine today 0.83 down from 4.74 on admission, cardiac enzymes negative 3, LDL 87, cortisol 5, TSH 2.24 and magnesium 1.8. Current cardiac medications include aspirin 81 mg daily, atorvastatin 40 mg daily, lisinopril 10 mg twice a day, Aldactone 25 mg daily and hydrochlorothiaz madelin 25 mg daily. Most recent echocardiogram obtained in the office May 2019 revealed mildly impaired LV systolic function with ejection fraction 45%, hypokinesia and inferior and septal spain from the base to the apex, mild mitral regurgitation. Most recent stress test performed in the office May 2019 reveals no evidence of defect with fixed mid inferior wall hypokinesia with no evidence of stress- induced ischemia. REVIEW OF SYSTEMS At the time of my exam: CONSTITUTIONAL: Denies fever or chills. CARDIOVASCULAR: Denies chest pain, shortness of breath, orthopnea, PND or palpitations. RESPIRATORY: Denies cough. GASTROINTESTINAL: Denies abdominal pain, diarrhea, constipation, nausea or v omiting. MUSCULOSKELETAL: Denies myalgias. NEUROLOGIC: Denies numbness, tingling, headache or weakness. ENDOCRINE: Denies fatigue, weight change, polydipsia or polyurina. GENITOURINARY: Denies burning, hematuria or urgency with micturation. HEMATOLOGIC: Denies history of anemia or bleeding. PHYSICAL EXAMINATION Blood pressure 119/73 heart rate 68 afebrile and maintaining oxygen saturation on room air. CONSTITUTIONAL: No apparent distress. HEENT: Head is normocephalic. Pupils are equal, round. Sclerae anicteric. Mucous membranes of the mouth are moist. No JVD. No carotid bruit. CHEST EXAMINATION: Lungs are clear to auscultation. No chest wall tenderness is noted on palpation or with deep breathing. HEART EXAMINATION: Regular rate and rhythm. S1, S2 heard. No murmurs, gallops or rub. ABDOMEN: Soft, nontender. EXTREMITIES: 2+ peripheral pulses, no lower extremity edema and no calf te nderness. NEUROLOGIC EXAMINATION: Patient is awake, alert and oriented x3. ASSESSMENT Chest pain, atypical Acute kidney injury, improved Hypotension Ischemic cardiomyopathy Coronary artery disease Hypertension Dyslipidemia Chronic nicotine dependence PLAN Clinically her BALTAZAR seems to be related to dehydration. An acute coronary event has been ruled out. Obtain 2D echocardiogram and doppler study to assess cardiac structure and function. Increase lipitor to 80 mg daily for target LDL less than 70. Discontinue hydrochlorothiazide indefinitely. Continue to hold lisinopril and Aldactone. Tomorrow we will start Lopressor 12.5 mg twice a day. Further recommendations to follow based upon clinical course. Thank you kindly for this consultation. Nurse Practitioner note has been reviewed, I agree with a documented findings and plan of care. Patient was seen and examined. Past Medical History Past Medical History: GERD/Reflux, Hypertension, Myocardial Infarction ([place]) Additional Past Medical History / Comment(s): Hiatal hernia, diverticular disease Last Myocardial Infarction Date:: 2017 History of Any Multi-Drug Resistant Organisms: None Reported Past Surgical History: Heart Catheterization, Tubal Ligation Additional Past Surgical History / Comment(s): EGD, colonoscopy Past Anesthesia/Blood Transfusion Reactions: No Reported Reaction Past Psychological History: Anxiety Additional Psychological History / Comment(s): Pt resides with hre spouse. 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 She is independent. Smoking Status: Current every day smoker Past Alcohol Use History: Occasional Additional Past Alcohol Use History / Comment(s): Pt started smoking in 1978 and is less than a ppd smoker. Past Drug Use History: Marijuana - Past Family History Mother Family Medical History: No Reported History Additional Family Medical History / Comment(s): Mother had a [place] and 3 vessel CABG at the age of 60 yrs. Father History Unknown: Yes Additional Family Medical History / Comment(s): father in a work related accident. Medications and Allergies Home Medications Medication Instructions Recorded Confirmed Type Omeprazole 20 mg PO BID 01/02/18 09/27/20 History Spironolactone [Aldactone] 25 mg PO DAILY #90 tab 01/04/18 09/27/20 Rx Aspirin EC [Ecotrin Low Dose] 81 mg PO DAILY 09/27/20 09/27/20 History Atorvastatin [Lipitor] 40 mg PO HS 09/27/20 09/27/20 History Gabapentin 600 mg PO BID 09/27/20 09/27/20 History LORazepam [Ativan] 0.5 mg PO Q8H PRN 09/27/20 09/27/20 History Lisinopril [Prinivil] 10 mg PO BID 09/27/20 09/27/20 History Nitroglycerin Sl Tabs [Nitrostat] 0.4 mg SL Q5M PRN 09/27/20 09/27/20 History hydroCHLOROthiazide [Hydrodiuril] 25 mg PO DAILY 09/27/20 09/27/20 History methocarbamoL [Robaxin] 500 mg PO TID 09/27/20 09/27/20 History traMADol HCL 50 mg PO QID 09/27/20 09/27/20 History Allergies Allergy/AdvReac Type Severity Reaction Status Date / Time No Known Allergies Allergy Verified 09/27/20 21:31 Physical Exam Vitals: Vital Signs Temp Pulse Resp BP Pulse Ox 09/29/20 07:21 98 09/29/20 03:27 97.9 F 68 18 99/49 98 09/29/20 00:00 98.1 F 75 18 108/72 97 09/28/20 20:00 98.3 F 75 18 104/65 98 09/28/20 18:00 98 09/28/20 16:00 70 99/59 98 09/28/20 12:00 83 93/57 99 Intake and Output 09/28/20 09/29/20 09/29/20 22:59 06:59 14:59 Intake Total 240 Balance 240 Intake: Oral 240 Other: Weight 74 kg Results 09/29/20 07:28 09/29/20 07:28 Lipids 09/28/20 Range/Units 02:25 Triglycerides 238.0 H (0.0-149.0) mg/dL Cholesterol 159 (0-200) mg/dL HDL Cholesterol 24.0 L (40.0-60.0) mg/dL Cholesterol/HDL Ratio 6.63 Comprehensive Metabolic Panel 09/28/20 Range/Units 02:22 Sodium 140 (135-145) mmol/L Potassium 4.0 (3.5-5.5) mmol/L Chloride 109 (96-109) mmol/L Carbon Dioxide 16.0 L (21.6-31.8) mmol/L BUN 66.0 H (9.0-27.0) mg/dL Creatinine 4.2 H (0.6-1.5) mg/dL Glucose 94 (70-110) mg/dL Calcium 7.3 L (8.7-10.3) mg/dL Current Medications Generic Name Dose Route Start Last Admin Trade Name Freq PRN Reason Stop Dose Admin Hydrocodone Bitart/Acetaminophen 1 each 09/28/20 10:23 09/28/20 19:09 Hydrocodone/Apap 5-325mg 1 Each Tab PO 1 each Q6HR PRN Administration Pain Aspirin 81 mg 09/29/20 09:00 Aspirin 81 Mg PO DAILY FERMÍN Atorvastatin Calcium 40 mg 09/29/20 21:00 Atorvastatin 40 Mg Tab PO HS FERMÍN Sodium Chloride 1,000 mls @ 100 mls/hr 09/27/20 22:15 09/28/20 22:53 Saline 0.9% IV 100 mls/hr .Q10H FERMÍN Administration Lidocaine 1 patch 09/28/20 10:45 09/28/20 12:11 Lidocaine 5% Patch TOPICAL 1 patch DAILY FERMÍN Administration Protocol Nitroglycerin 0.4 mg 09/27/20 17:44 Nitroglycerin Sl Tabs 0.4 Mg Tab SUBLINGUAL Q5M PRN Chest Pain Intake and Output 09/28/20 09/29/20 09/29/20 22:59 06:59 14:59 Intake Total 240 Balance 240 Intake: Oral 240 Other: Weight 74 kg 09/27/20 13:39 09/28/20 02:22
--- NOTE | 2020-09-29 12:55 | PN ---
PROGRESS NOTE Patient is seen for followup for acute kidney injury, mostly prerenal associated with hypotension. Blood pressure has improved and serum creatinine improved significantly to 0.8 from 4.2 yesterday. The patient has had good urine output. She denies any significant complaints. She states overall she is feeling better. PHYSICAL EXAMINATION: On examination today, blood pressure 119/73, heart rate 68 per minute. She is afebrile. Examination shows no evidence of edema in lower extremities. ABDOMEN: Soft, nontender. AUTO APPRAISER EXAM: Grossly intact. LABS: Sodium 139, potassium 4.6, chloride 109. CO2 is 25, BUN 26, creatinine 0.83, hemoglobin 11.6 g/dL. ASSESSMENT: 1. Acute kidney injury secondary to hypotension, hypovolemia, currently significantly improved. 2. Hypotension with serum cortisol level significantly low at 5 with high suspicion for adrenal insufficiency. Patient should have ACTH stimulation test. 3. Hypertension. Blood pressure currently low. Maintained on saline. It is, however, better than on initial admission. 4. Metabolic acidosis secondary to renal failure, now improved. PLAN: Continue saline and check ACTH stimulation test for underlying adrenal insufficiency. MMODL / IJN: [id number] /
[2020-09-29] MEDS ORDERED: COSYNTROPIN 0.25 MG VIAL IVP ONE (13:00)
--- NOTE | 2020-09-29 13:04 | P.PN ---
Subjective This is a 54-year-old female patient of my partner. She has a history of myocardial infarction 3 years ago. She currently takes home medications h ydrochlorothiazide, spironolactone, lisinopril, gabapentin, aspirin, tramadol, omeprazole, and when necessary nitroglycerin tabs. She reports yesterday having midthoracic back pain along with chest pain became severe enough to bring her to the emergency room. She is concerned about a repeat microinfarction. Troponins were negative, however she is found to have a significantly elevated BUN and creatinine consistent with acute renal failure. Her GFR is 10. She denies taking any herbal supplements, multivitamins, nonsteroidal anti-inflammatories, her anything else other than her current medic ations. She denies any shortness of breath, nausea vomiting, blood in her stool, black stool, bloody urine, trouble urinating. Overnight she was hypotensive and required fluid resuscitation. This a.m. she feels much improved.v blood pressure is now stable 09/29/2020: Patient is doing well today. She is awake alert and oriented. She has no major complaints. She indicates that thoracic back pain has not been helped with the Lidoderm patch. Number: Is helping with her pain. Her blood pressure is now much improved with continued IV fluids. Repeat basic metabolic panel today shows that her GFR is now 81, up from 11.3 the day before. Cardiology seen her and will restart some of her blood pressure medications Nephrology had seen her and are checking some laboratory studies in relation to her acute kidney injury. 's morning she denies any chest pains, pressures, shortness of breath, nausea, vomiting, diarrhea, constipation. Eyes and nose are reviewed. Objective - Vital Signs Vital signs: Vital Signs Temp 98.4 F 09/29/20 11:15 Pulse 66 09/29/20 11:15 Resp 16 09/29/20 11:15 BP 112/69 09/29/20 11:15 Pulse Ox 98 09/29/20 11:15 Intake & Output 09/28/20 09/29/20 09/29/20 18:59 06:59 18:59 Intake Total 720 125 Output Total 650 Balance 70 125 Weight 74 kg Intake: Oral 720 125 Output: Urine 650 - Exam General: The patient is awake and alert, in no distress, and does not appear acutely ill. Neck: The neck is supple, there is no thyromegaly, lymphadenopathy, tenderness or JVD. Cardiovascular: S1S2 is normal, There is a regular rate and rhythm. No murmur, rub or gallop is appreciated. Respiratory: Lungs are clear to auscultation bilaterally, respirations are non-labored, breath sounds are equal. Gastrointestinal: Soft, non-distended, non-tender abdomen without masses or organomegaly noted. There is no rebound or guarding present. Bowel sounds are unremarkable. Musculoskeletal: Normal ROM, no tenderness, There is no pedal edema. There is no calf tenderness or swelling. No cords were appreciated. Neurological: CN II-XII intact, there are no obvious motor or sensory deficits. Coordination appears grossly intact. Speech is normal. Skin: Skin is warm and dry and no rashes or lesions are noted. - Labs CBC & Chem 7: 09/29/20 07:28 09/29/20 07:28 Labs: Abnormal Lab Results - Last 24 Hours (Table) 09/28/20 09/29/20 Range/Units 02:22 07:28 Chloride 109 H (98-107) mmol/L Carbon Dioxide 16.0 L (21.6-31.8) mmol/L Anion Gap 15.00 H (4.00-12.00) mmol/L BUN 66.0 H 26 H (9.0-27.0) mg/dL Creatinine 4.2 H (0.6-1.5) mg/dL Est GFR (CKD-EPI)AfAm 13.1 L (60.0-200.0) Est GFR (CKD-EPI)NonAf 11.3 L (60.0-200.0) Glucose 107 H (74-99) mg/dL Calcium 7.3 L (8.7-10.3) mg/dL Microbiology - Last 24 Hours (Table) 09/27/20 16:18 Urine Culture - Final Urine,Clean Catch Assessment and Plan (1) Dehydration Current Visit: Yes Status: Acute Code(s): E86.0 - DEHYDRATION SNOMED Code(s): 14446867 (2) Acute renal failure Current Visit: Yes Status: Acute Code(s): N17.9 - ACUTE KIDNEY FAILURE, UNSPECIFIED SNOMED Code(s): 25775883 (3) H/O acute myocardial infarction Current Visit: Yes Status: Acute Code(s): I25.2 - OLD MYOCARDIAL INFARCTION SNOMED Code(s): 592766340 (4) Mixed hyperlipidemia Current Visit: Yes Status: Acute Code(s): E78.2 - MIXED HYPERLIPIDEMIA SNOMED Code(s): 834645116 (5) GERD (gastroesophageal reflux disease) Current Visit: Yes Status: Acute Code(s): K21.9 - GASTRO-ESOPHAGEAL REFLUX DISEASE WITHOUT ESOPHAGITIS SNOMED Code(s): 478430901 (6) Back pain Current Visit: Yes Status: Acute Code(s): M54.9 - DORSALGIA, UNSPECIFIED SNOMED Code(s): 212835325 (7) Chest pain Current Visit: Yes Status: Acute Code(s): R07.9 - CHEST PAIN, UNSPECIFIED SNOMED Code(s): 59702677 (8) Essential (primary) hypertension Current Visit: No Status: Acute Code(s): I10 - ESSENTIAL (PRIMARY) HYPERTENSION SNOMED Code(s): 66227952 (9) Systolic congestive heart failure Current Visit: No Status: Acute Code(s): I50.20 - UNSPECIFIED SYSTOLIC (CONGESTIVE) HEART FAILURE SNOMED Code(s): 90030760 (10) Tobacco abuse Current Visit: No Status: Acute Code(s): Z72.0 - TOBACCO USE SNOMED Code(s): 114755321 Plan: She'll continue on IV fluids of 100 mL per hour. Repeat labs in a.m. Further recommendations from consultants he'll be reviewed in the a.m. Most likely dehydration and acute kidney injury from diuretics and EULALIA inhibitor. I reevaluated next 24 hours, and expect discharge tomorrow.
[2020-09-29] MEDS: HYDROcodone/APAP 5-325MG 1 EACH TAB PO PRN ×2 (13:15→19:40)
[2020-09-29] MEDS: ATORVASTATIN 80 MG TAB PO SCH (19:40)
[2020-09-29] MEDS ORDERED: ATORVASTATIN 40 MG TAB PO SCH (21:00)
[2020-09-30] MEDS: SODIUM CHLORIDE 0.9% 1,000 ML IV SCH ×3 (05:15→23:51)
[2020-09-30] MEDS ORDERED: METOPROLOL TARTRATE 12.5 MG TAB PO SCH (09:00)
--- NOTE | 2020-09-30 09:07 | P.PN ---
Progress Note - Text Patient seen and examined, labs pending for this morning. Expecting discharge this afternoon once cleared by cardiology and nephrology.
[2020-09-30] MEDS ORDERED: MAG HYDROX/AL HYDROX/SIMETH 30 ML CUP PO PRN (09:17)
[2020-09-30] MEDS: PANTOPRAZOLE 40 MG TABLET PO SCH ×2 (09:32→17:05)
[2020-09-30] MEDS: METOPROLOL TARTRATE 25 MG TAB PO SCH ×2 (09:32→20:12)
[2020-09-30] MEDS: ASPIRIN 81 MG PO SCH (09:32)
[2020-09-30] MEDS: LIDOCAINE 5% PATCH TOPICAL SCH (09:32)
[2020-09-30 11:15] LABS: African American GFR (CKD) >90 (>60 ml/min/1.73 sqM); Anion Gap 5 mmol/L; Blood Urea Nitrogen 15 mg/dL (7-17); Calcium 8.9 mg/dL (8.4-10.2); Carbon Dioxide 25 mmol/L (22-30); Chloride 109 mmol/L (98-107); Glucose 90 mg/dL (74-99); Non-African American GFR(CKD) >90 (>60 ml/min/1.73 sqM); Potassium 4.6 mmol/L (3.5-5.1); Sodium 139 mmol/L (137-145)
--- NOTE | 2020-09-30 13:05 | P.PN ---
Subjective Progress Note Date: 09/30/20 Principal diagnosis: This is a 54-year-old female seen in consultation because of acute kidney injury secondary to low blood pressure. He was worked up for acute renal failure. She underwent ACTH stimulation test and it was significant. Baseline cortisol level was 5 initially and during the ACTH test the baseline cortisol was 9, 26 and 33 with ACTH stimulation, suggestive of adrenal failure. The cause of the adrenal failure is not clear Further workup included ultrasound of the kidney 11.9 and 9.9 cm right and left kidney Came in because of back pain and chest pain. The past she is known with coronary artery disease and had a cardiac catheterization. Currently she is feeling much better denies any complaints no chest pain shortness of breath fever chills cough good appetite. She is able to walk around Blood pressure is much better , blood pressures are 133/72, 115/70 with heart rate in the 92 - 85 range Objective - Vital Signs Vital signs: Vital Signs Temp 98.3 F 09/30/20 08:00 Pulse 73 09/30/20 08:00 Resp 16 09/30/20 08:00 BP 115/70 09/30/20 08:00 Pulse Ox 98 09/30/20 08:00 Intake & Output 09/29/20 09/30/20 09/30/20 18:59 06:59 18:59 Intake Total 661 240 Balance 661 240 Weight 74.4 kg Intake: Oral 661 240 Other: # Voids 5 1 Exam she is awake alert oriented comfortable HEENT exam no JVP neck is supple no facial asymmetry Lungs are clear to auscultation good air entry bilaterally Heart sounds unremarkable for any murmur murmur rub gallop. Abdomen soft nontender Extreme exam no edema Neurologically awake alert oriented - Labs CBC & Chem 7: 09/29/20 07:28 09/30/20 09:45 Labs: Abnormal Lab Results - Last 24 Hours (Table) 09/30/20 Range/Units 09:45 Chloride 109 H (98-107) mmol/L Assessment and Plan Assessment: Impression 1. Hypotension resolved with IV fluids. Possibility of adrenal failure was considered. Initially serum cortisol was 5 he is somewhat low but within normal range. Subsequently with an ACTH stimulation test, cortisol levels were 9, at baseline 26 ng/dL 30 minutes later and 33, 30 minutes after the last level. Etiology is unclear. TSH level is normal at 2.2 Charan international units per mL normal range being 0.3-5.5 2. Acute kidney injury resolved with IV fluids. Peak creatinine was 4.74 on admission and currently is 0.71 3. Admitted with chest pain resolved 4. Mild degree of gap and non-gap acidosis from acute kidney injury improving with IV fluids. Recommendation 1. Draw ACTH level, 2. Consult endocrinology regarding acute renal failure. 3. Patient can be discharged once she is started on replacement therapy but I'll defer to the automotive generator repairer for this
--- NOTE | 2020-09-30 13:05 | P.PN ---
Subjective Patient is resting comfortably in bed. She appears better hydrated now. Mucosae are moist. She denies any chest discomfort dizziness lightheadedness or chest discomfort or palpitations on examination blood pressure is 115/70 mmHg pulse rate is in the 60s and 70s afebrile Breath sounds are clear no rhonchi no crackles Heart sounds S1 and S2 are normal No murmurs or gallops or rub Abdomen is soft nontender Extremities are warm no edema Sodium 139 potassium 4.6 BUN 15 creatinine 0.7 Impression Known coronary artery disease Known ischemic cardiopathy Presented with atypical chest discomfort Acute kidney injury likely related to dehydration Heart rate was high site was discontinued Plan Increase metoprolol to 25 mg twice daily Objective - Vital Signs Vital signs: Vital Signs Temp 98.3 F 09/30/20 08:00 Pulse 73 09/30/20 08:00 Resp 16 09/30/20 08:00 BP 115/70 09/30/20 08:00 Pulse Ox 98 09/30/20 08:00 Intake & Output 09/29/20 09/30/20 09/30/20 18:59 06:59 18:59 Intake Total 661 240 Balance 661 240 Weight 74.4 kg Intake: Oral 661 240 Other: # Voids 5 1 - Labs CBC & Chem 7: 09/29/20 07:28 09/30/20 09:45 Labs: Abnormal Lab Results - Last 24 Hours (Table) 09/30/20 Range/Units 09:45 Chloride 109 H (98-107) mmol/L
[2020-09-30] MEDS: HYDROcodone/APAP 5-325MG 1 EACH TAB PO PRN ×2 (15:21→20:13)
[2020-09-30] MEDS: ATORVASTATIN 80 MG TAB PO SCH (20:12)
[2020-10-01 05:19] VITALS: RESP 17
[2020-10-01] MEDS: PANTOPRAZOLE 40 MG TABLET PO SCH (06:27)
[2020-10-01] MEDS: ASPIRIN 81 MG PO SCH (08:47)
[2020-10-01] MEDS: SODIUM CHLORIDE 0.9% 1,000 ML IV SCH (08:47)
[2020-10-01] MEDS: LIDOCAINE 5% PATCH TOPICAL SCH (08:47)
[2020-10-01] MEDS: METOPROLOL TARTRATE 25 MG TAB PO SCH (08:47)
--- NOTE | 2020-10-01 09:10 | P.PN ---
Subjective Progress Note Date: 10/01/20 Principal diagnosis: This is a 54-year-old female seen in consultation because of acute kidney injury secondary to low blood pressure. He was worked up for acute renal failure. She underwent ACTH stimulation test and it was significant. Baseline cortisol level was 5 initially and during the ACTH test the baseline cortisol was 9, post ACTH at 30 min cortisol was 26 and 60 min post acth cortisol was 33, suggestive of possible secondary adrenal failure. TSH was normal though at 2.2 on 09/28/20 Further workup included ultrasound of the kidney 11.9 and 9.9 cm right and left kidney Came in because of back pain and chest pain. The past she is known with coronary artery disease and had a cardiac catheterization. She continues her the back pain due to otherwise she is denying any complaints Currently she is feeling much better denies any complaints no chest pain short ness of breath fever chills cough good appetite. She is able to walk around Objective - Vital Signs Vital signs: Vital Signs Temp 98.3 F 10/01/20 04:35 Pulse 58 L 10/01/20 04:35 Resp 17 10/01/20 04:35 BP 129/70 10/01/20 04:35 Pulse Ox 99 10/01/20 04:35 Intake & Output 09/30/20 10/01/20 10/01/20 18:59 06:59 18:59 Intake Total 720 240 Balance 720 240 Weight 74.3 kg Intake: Oral 720 240 On examination is awake alert oriented comfortable HEENT exam no JVP neck is supple no facial asymmetry Lungs are clear to auscultation good air entry bilaterally Heart sounds unremarkable for any murmur rub gallop Abdomen soft nontender Extremity exam was no edema Neurologically awake alert oriented - Labs CBC & Chem 7: 09/29/20 07:28 09/30/20 09:45 Labs: Abnormal Lab Results - Last 24 Hours (Table) 09/30/20 Range/Units 09:45 Chloride 109 H (98-107) mmol/L Assessment and Plan Assessment: Impression 1. Hypotension resolved with IV fluids. Possibility of adrenal failure was considered. Initially serum cortisol was 5 is somewhat low but within normal range. Subsequently with an ACTH stimulation test, cortisol levels were 9, at baseline 26 ng/dL 30 minutes later and 33, after 60 minutes Etiology is unclear. TSH level is normal at 2.2.ACTH level ordered and pending. Possibility of adrenal failure needs to be assessed. 2. Acute kidney injury resolved with IV fluids. Peak creatinine was 4.74 on admission and currently is 0.71 3. Admitted with chest pain resolved 4. Mild degree of gap and non-gap acidosis from acute kidney injury improving with IV fluids. Recommendation 1. Pending ACTH level, 2. Consult endocrinology regarpossible adrenal insufficiency 3. Patient can be discharged from the nephrological perspective, to be followed up closely for blood pressure monitoring and acute kidney injury
[2020-10-01] MEDS: HYDROcodone/APAP 5-325MG 1 EACH TAB PO PRN (10:32)
--- NOTE | 2020-10-01 11:39 | P.PN ---
Subjective Progress Note Date: 09/30/20 This is a 54-year-old female patient of my partner. She has a history of myocardial infarction 3 years ago. She currently takes home medications hydrochlorothiazide, spironolactone, lisinopril, gabapentin, aspirin, tramadol, omeprazole, and when necessary nitroglycerin tabs. She reports yesterday having midthoracic back pain along with chest pain became severe enough to bring her to the emergency room. She is concerned about a repeat microinfarction. Troponins were negative, however she is found to have a significantly elevated BUN and creatinine consistent with acute renal failure. Her GFR is 10. She denies taking any herbal supplements, multivitamins, nonsteroidal anti-inflammatories, her anything else other than her current medications. She denies any shortness of breath, nausea vomiting, blood in her stool, black stool, bloody urine, trouble urinating. Overnight she was hypotensive and required fluid resuscitation. This a.m. she feels much improved.v blood pressure is now stable 09/29/2020: Patient is doing well today. She is awake alert and oriented. She has no major complaints. She indicates that thoracic back pain has not been helped with the Lidoderm patch. Number: Is helping with her pain. Her blood pressure is now much improved with continued IV fluids. Repeat basic metabolic panel today shows that her GFR is now 81, up from 11.3 the day before. Cardiology seen her and will restart some of her blood pressure medications Nephrology had seen her and are checking some laboratory studies in relation to her acute kidney injury. 's morning she denies any chest pains, pressures, shortness of breath, nausea, vomiting, diarrhea, constipation. Eyes and nose are reviewed. 09/30/2020: Patient is doing well. She has no complaints today. Her BUN and creatinine almost returned to baseline. Nephrology is concerned about possible adrenal insufficiency is checking cortisol levels. Cardiology started on metoprolol and adjusting the doses based on her heart rate and blood pressure. Patient denies any chest pains compression of shortness breath, nausea vomiting. She is urinating normally. Objective - Vital Signs Vital signs: Vital Signs Temp 98.3 F 10/01/20 04:35 Pulse 58 L 10/01/20 04:35 Resp 17 10/01/20 04:35 BP 129/70 10/01/20 04:35 Pulse Ox 99 10/01/20 04:35 Intake & Output 09/30/20 10/01/20 10/01/20 18:59 06:59 18:59 Intake Total 720 240 Balance 720 240 Weight 74.3 kg Intake: Oral 720 240 - Exam General: The patient is awake and alert, in no distress, and does not appear acutely ill. Neck: The neck is supple, there is no thyromegaly, lymphadenopathy, tenderness or JVD. Cardiovascular: S1S2 is normal, There is a regular rate and rhythm. No murmur, rub or gallop is appreciated. Respiratory: Lungs are clear to auscultation bilaterally, respirations are non-labored, breath sounds are equal. Gastrointestinal: Soft, non-distended, non-tender abdomen without masses or organomegaly noted. There is no rebound or guarding present. Bowel sounds are unremarkable. Musculoskeletal: Normal ROM, no tenderness, There is no pedal edema. There is no calf tenderness or swelling. No cords were appreciated. Neurological: CN II-XII intact, there are no obvious motor or sensory deficits. Coordination appears grossly intact. Speech is normal. Skin: Skin is warm and dry and no rashes or lesions are noted. - Labs CBC & Chem 7: 09/29/20 07:28 09/30/20 09:45 Assessment and Plan (1) Dehydration Current Visit: Yes Status: Acute Code(s): E86.0 - DEHYDRATION SNOMED Code(s): 26521635 (2) Acute renal failure Current Visit: Yes Status: Acute Code(s): N17.9 - ACUTE KIDNEY FAILURE, UNSPECIFIED SNOMED Code(s): 69757113 (3) H/O acute myocardial infarction Current Visit: Yes Status: Acute Code(s): I25.2 - OLD MYOCARDIAL INFARCTION SNOMED Code(s): 390945906 (4) Mixed hyperlipidemia Current Visit: Yes Status: Acute Code(s): E78.2 - MIXED HYPERLIPIDEMIA SNOMED Code(s): 407445516 (5) GERD (gastroesophageal reflux disease) Current Visit: Yes Status: Acute Code(s): K21.9 - GASTRO-ESOPHAGEAL REFLUX DISEASE WITHOUT ESOPHAGITIS SNOMED Code(s): 179129866 (6) Back pain Current Visit: Yes Status: Acute Code(s): M54.9 - DORSALGIA, UNSPECIFIED SNOMED Code(s): 633043824 (7) Chest pain Current Visit: Yes Status: Acute Code(s): R07.9 - CHEST PAIN, UNSPECIFIED SNOMED Code(s): 33554914 (8) Essential (primary) hypertension Current Visit: No Status: Acute Code(s): I10 - ESSENTIAL (PRIMARY) HYPERTENSION SNOMED Code(s): 03450105 (9) Systolic congestive heart failure Current Visit: No Status: Acute Code(s): I50.20 - UNSPECIFIED SYSTOLIC (CONGESTIVE) HEART FAILURE SNOMED Code(s): 91255258 (10) Tobacco abuse Current Visit: No Status: Acute Code(s): Z72.0 - TOBACCO USE SNOMED Code(s): 227205555 Plan: She'll continue on IV fluids of 100 mL per hour. Repeat labs in a.m. Further recommendations from consultants he'll be reviewed in the a.m. Most likely dehydration and acute kidney injury from diuretics and EULALIA inhibitor. 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 May need to consult endocrinology depending on her status. I reevaluated next 24 hours, and expect discharge tomorrow.
--- NOTE | 2020-10-01 11:47 | P.DS ---
Providers Date of admission: 09/27/20 17:56 Expected date of discharge: 10/01/20 Attending physician: Maco Calix Consults: 09/27/20 17:45 Consult Physician Urgent Consulting Provider: Latasha Sanchez Consult Reason/Comments: Acute renal failure Do you want consulting provider notified?: Yes 09/28/20 10:23 Consult Physician Routine Consulting Provider: Tala Soriano Consult Reason/Comments: chest pain, cardiac med change Do you want consulting provider notified?: Yes Primary care physician: Zhou Velazquez - Katharina Diagnosis(es) (1) Dehydration Current Visit: Yes Status: Acute (2) Acute renal failure Current Visit: Yes Status: Acute (3) H/O acute myocardial infarction Current Visit: Yes Status: Acute (4) Mixed hyperlipidemia Current Visit: Yes Status: Acute (5) GERD (gastroesophageal reflux disease) Current Visit: Yes Status: Acute (6) Back pain Current Visit: Yes Status: Acute (7) Chest pain Current Visit: Yes Status: Acute (8) Essential (primary) hypertension Current Visit: No Status: Acute (9) Systolic congestive heart failure Current Visit: No Status: Acute (10) Tobacco abuse Current Visit: No Status: Acute Hospital Course: This is a 54-year-old female patient of my partner. She has a history of myocardial infarction 3 years ago. She currently takes home medications hydrochlorothiazide, spironolactone, lisinopril, gabapentin, aspirin, tramadol, omeprazole, and when necessary nitroglycerin tabs. She reports yesterday having midthoracic back pain along with chest pain became severe enough to bring her to the emergency room. She is concerned about a repeat microinfarction. Troponins were negative, however she is found to have a significantly elevated BUN and creatinine consistent with acute renal failure. Her GFR is 10. She denies taking any herbal supplements, multivitamins, nonsteroidal anti-inflammatories, her anything else other than her current medications. She denies any shortness of breath, nausea vomiting, blood in her stool, black stool, bloody urine, trouble urinating. Overnight she was hypotensive and required fluid resuscitation. This a.m. she feels much improved.v blood pressure is now stable 09/29/2020: Patient is doing well today. She is awake alert and oriented. She has no major complaints. She indicates that thoracic back pain has not been helped with the Lidoderm patch. Number: Is helping with her pain. Her blood pressure is now much improved with continued IV fluids. Repeat basic metabolic panel today shows that her GFR is now 81, up from 11.3 the day before. Cardiology seen her and will restart some of her blood pressure medications Nephrology had seen her and are checking some laboratory studies in relation to her acute kidney injury. 's morning she denies any chest pains, pressures, shortness of breath, nausea, vomiting, diarrhea, constipation. Eyes and nose are reviewed. 09/30/2020: Patient is doing well. She has no complaints today. Her BUN and creatinine almost returned to baseline. Nephrology is concerned about possible adrenal insufficiency is checking cortisol levels. Cardiology started on metoprolol and adjusting the doses based on her heart rate and blood pressure. Patient denies any chest pains compression of shortness breath, nausea vomiting. She is urinating normally. 10/01/2020 Patient feels well. She has been cleared By cardiology and nephrology. ACTH test is pending at this time. We'll plan outpatient follow-up with endocrinology regarding this ACTH test. She'll follow-up with a primary care physician and cardiology. Patient Condition at Discharge: Fair Plan - Discharge Summary Discharge Rx Participant: No New Discharge Prescriptions: New Atorvastatin [Lipitor] 80 mg PO HS #90 tab Metoprolol Tartrate [Lopressor] 25 mg PO BID #180 tab Continue Omeprazole 20 mg PO BID Gabapentin 600 mg PO BID Nitroglycerin Sl Tabs [Nitrostat] 0.4 mg SL Q5M PRN PRN Reason: Chest Pain Aspirin EC [Ecotrin Low Dose] 81 mg PO DAILY traMADol HCL 50 mg PO QID methocarbamoL [Robaxin] 500 mg PO TID LORazepam [Ativan] 0.5 mg PO Q8H PRN PRN Reason: Anxiety Discontinued Spironolactone [Aldactone] 25 mg PO DAILY #90 tab hydroCHLOROthiazide [Hydrodiuril] 25 mg PO DAILY Lisinopril [Prinivil] 10 mg PO BID Atorvastatin [Lipitor] 40 mg PO HS Discharge Medication List Omeprazole 20 mg PO BID 01/02/18 [History] Aspirin EC [Ecotrin Low Dose] 81 mg PO DAILY 09/27/20 [History] Gabapentin 600 mg PO BID 09/27/20 [History] LORazepam [Ativan] 0.5 mg PO Q8H PRN 09/27/20 [History] Nitroglycerin Sl Tabs [Nitrostat] 0.4 mg SL Q5M PRN 09/27/20 [History] methocarbamoL [Robaxin] 500 mg PO TID 09/27/20 [History] traMADol HCL 50 mg PO QID 09/27/20 [History] Atorvastatin [Lipitor] 80 mg PO HS #90 tab 10/01/20 [Rx] Metoprolol Tartrate [Lopressor] 25 mg PO BID #180 tab 10/01/20 [Rx] Follow up Appointment(s)/Referral(s): Zhou Velazquez Jr, DO [Primary Care Provider] - 1-2 days Jagjit Roe MD [STAFF PHYSICIAN] - 1 Week Nasreen Avery MD [STAFF PHYSICIAN] - 1 Week Discharge Disposition: HOME SELF-CARE
[2020-10-01 12:52] VITALS: BP 121/57; PULSE 67; TEMP 98.5
== END 2020-10-01 12:43 | disposition home or self-care (01) | DRG 683 ==
LOC: EC 12:21 → 3SCARD 17:56
PROVIDERS: ADMIT Family Medicine; ATTEND Family Medicine
DX: N17.9 Acute kidney failure, unspecified (principal); E87.2 Acidosis; I50.22 Chronic systolic (congestive) heart failure; I25.10 Atherosclerotic heart disease of native coronary artery without angina pectoris; E78.2 Mixed hyperlipidemia; I25.5 Ischemic cardiomyopathy; I11.0 Hypertensive heart disease with heart failure; T50.1X1A Poisoning by loop [high-ceiling] diuretics, accidental (unintentional), initial encounter; E86.0 Dehydration; K21.9 Gastro-esophageal reflux disease without esophagitis; E86.1 Hypovolemia; Z20.822 Contact with and (suspected) exposure to COVID-19; I95.9 Hypotension, unspecified; R07.89 Other chest pain; F17.200 Nicotine dependence, unspecified, uncomplicated; F41.9 Anxiety disorder, unspecified; I25.2 Old myocardial infarction; Z79.02 Long term (current) use of antithrombotics/antiplatelets; Z79.82 Long term (current) use of aspirin; Z79.899 Other long term (current) drug therapy; X58.XXXA Exposure to other specified factors, initial encounter; Z87.19 Personal history of other diseases of the digestive system; Z98.51 Tubal ligation status
CPT/HCPCS: 36415; 71046; 76770; 80048; 80053; 80061; 81001; 82024; 82533; 83605; 83735; 84443; 84484; 85025; 85610; 85730; 87086; 93005; 93306; 94760; 96374; 99285

== ENCOUNTER → 2021-07-30 | Outpatient (CLI) | payer OTHER ==
[2021-07-30 18:54] LABS: Basophils # (A) 0.03 X 10*3/uL (0.00-0.10); Basophils % (A) 0.6 %; Eosinophils # (A) 0.17 X 10*3/uL (0.04-0.35); Eosinophils % (A) 3.4 %; HGB 12.2 g/dL (12.0-15.0); Immature Grans, Automated 0.2 %; Lymphocytes # (A) 1.27 X 10*3/uL (0.90-5.00); Lymphocytes % (A) 25.7 %; MCH 27.7 pg (27.0-32.0); MCHC 30.5 g/dL (32.0-37.0); MCV 90.9 fL (80.0-97.0); Monocytes # (A) 0.38 X 10*3/uL (0.20-1.00); Monocytes % (A) 7.7 %; NRBC Per 100 WBC 0 /100 WBCS (0.0-0.0); Neutrophils # (A) 3.08 X 10*3/uL (1.80-7.70); Neutrophils % (A) 62.4 %; Platelet Count 214 X 10*3/uL (140-440); RDW 15.6 % (11.5-14.5); WBC 4.94 X 10*3/uL (4.50-10.00)
[2021-07-30 19:07] LABS: Carbon Dioxide 28.2 mmol/L (20.0-27.5); Potassium 3.9 mmol/L (3.5-5.5)
== END | disposition home or self-care (01) ==
LOC: LABPAT 10:34
PROVIDERS: ATTEND Orthopaedic Surgery Hand Surgery
DX: Z01.812 Encounter for preprocedural laboratory examination (principal); Z22.322 Carrier or suspected carrier of Methicillin resistant Staphylococcus aureus; M65.311 Trigger thumb, right thumb
CPT/HCPCS: 80051; 85025; 93005

== ENCOUNTER 2021-08-15 10:15 | Day surgery (SDC) | payer OTHER ==
[2021-08-09 11:47] VITALS: BMI 33.5
--- NOTE | 2021-08-14 11:12 | P.HPOR ---
History of Present Illness H&P Date: 08/14/21 Chief Complaint: Right thumb trigger finger Subjective: This is a 55 year old female that presents today for initial evaluation regarding a several month history of worsening right thumb pain, clicking, catching and locking. She denies any injury and states she can no longer use the thumb like she used to because of pain, she has tried oral steroids in the past for this and noted minimal relief. She also states she has noticed thick bands of tissue developing in the palm of the left hand and a small soft tissue mass present on the dorsal aspect of the small finger PIP joint which is occasionally painful. She denies any paresthesias and has no other areas of complaints. Physical Examination: LUE: AIN/PIN/Radial/Ulnar/Median motor intact. Radial/Ulnar/Median SILT. 2+/4 Radial/Ulnar pulses palpated. 5/5 APB, 5/5 FDI. Negative Finkelsteins, negative CMC grind, negative Durkan's compression. Dupuytren's cord present most notably in the ring finger and middle fingers with no appreciable flexion contracture present. Dorsal knuckle pad present over small finger PIP joint. PIP ROM 0-90 without pain. RUE: AIN/PIN/Radial/Ulnar/Median motor intact. Radial/Ulnar/Median SILT. 2+/4 Radial/Ulnar pulses palpated. 5/5 APB, 5/5 FDI. Negative Finkelsteins, negative CMC grind, negative Durkan's compression. TTP over thumb A1 walkre. Limited IP range of motion due to pain at thumb with palpable nodule at A1 walker. Imaging: X-Rays of the right wrist demonstrate previous distal radius fracture with signs of union with 15 degrees of residual dorsal angulation. Mild thumb CMC arthritis present. X-rays of the left hand demonstrate no acute osseus abnormality, with mild thumb CMC arthritis present. Impression: 1.) Right thumb stenosing tenosynovitis 2.) Left hand Dupuytren's disease Plan: Diagnosis and treatment options were discussed with the patient. She has an incarcerated right trigger thumb that has failed conservative treatment, I recommend right thumb A1 walker release. Risks and benefits of surgery including bleeding, infection, damage to surrounding tissue, need for further surgery, residual numbness were discussed and the patient wished to go forward with surgery. In regards to her Dupuytren disease, she has no signs of contracture at this time but we discussed Xiaflex vs surgery if her cords develope into flexion contractures but I recommend conservative treatment for now. She was agreeable with this plan of action and will be scheduled for right thumb A1 walker release in the near future. -Jhonny Laguerre DO Orthopedic Hand/Upper Extremity Surgeon Past Medical History Past Medical History: COPD, GERD/Reflux, Hyperlipidemia, Hypertension, My ocardial Infarction (PR), Osteoarthritis (OA) Additional Past Medical History / Comment(s): Hiatal hernia, swollen rt thumb- can't bend joint, heart cath 2014 Last Myocardial Infarction Date:: 2014 History of Any Multi-Drug Resistant Organisms: None Reported Past Surgical History: Heart Catheterization, Tubal Ligation Additional Past Surgical History / Comment(s): EGD, colonoscopy, laser eye surgery for glaucoma Past Anesthesia/Blood Transfusion Reactions: No Reported Reaction Smoking Status: Current every day smoker - Past Family History Mother Family Medical History: No Reported History Additional Family Medical History / Comment(s): Mother had a PR and 3 vessel CABG at the age of 60 yrs. Father History Unknown: Yes Additional Family Medical History / Comment(s): father in a work related accident. Medications and Allergies Home Medications Medication Instructions Recorded Confirmed Type Omeprazole 20 mg PO BID 01/02/18 08/09/21 History Aspirin EC [Ecotrin Low Dose] 81 mg PO DAILY 09/27/20 08/09/21 History Gabapentin 600 mg PO BID 09/27/20 08/09/21 History LORazepam [Ativan] 0.5 mg PO BID PRN 09/27/20 08/09/21 History Nitroglycerin Sl Tabs [Nitrostat] 0.4 mg SL Q5M PRN 09/27/20 08/09/21 History methocarbamoL [Robaxin] 500 mg PO TID 09/27/20 08/09/21 History Atorvastatin [Lipitor] 80 mg PO HS #90 tab 10/01/20 08/09/21 Rx Metoprolol Tartrate [Lopressor] 25 mg PO BID #180 tab 10/01/20 08/09/21 Rx HYDROcodone/APAP 7.5-325MG [[place] 1 tab PO BID PRN 08/09/21 08/09/21 History 7.5-325] diphenhydrAMINE [Benadryl] 50 mg PO BID 08/09/21 08/09/21 History Allergies Allergy/AdvReac Type Severity Reaction Status Date / Time No Known Allergies Allergy Verified 08/09/21 11:33 Physical Examination Osteopathic Statement: *. No significant issues noted on an osteopathic structural exam other than those noted in the History and Physical/Consult.
[~2021-08-15 10:15] MED LIST changes: +DEXAMETHASONE SOD PHOSPHATE 4 MG/ML 1 ML VIAL IV ONE; +HYDROmorphone 0.5 MG/0.5 ML SYRINGE IVP PRN; +MIDAZOLAM 2 MG/2 ML VIAL IV PRN; +ONDANSETRON 4 MG/2 ML VIAL IVP ONE; +Pre Op ABX Message 1 EACH MISC MISCELLANE ONE; +SCOPOLAMINE 1 MG/72 HR PATCH TRANSDERM ONE
[2021-08-15 10:42] VITALS: TEMP 97.2
[2021-08-15] MEDS ORDERED: LIDOCAINE 1% (10MG/ML) FOR IV START INTRADERMA ONE (10:48)
[2021-08-15] MEDS ORDERED: fentaNYL (PF) 50 MCG/ML 2 ML AMP ONE (10:50)
[2021-08-15] MEDS ORDERED: MIDAZOLAM 2 MG/2 ML VIAL ONE (10:50)
[2021-08-15] MEDS ORDERED: LIDOCAINE 2% INJ 20 MG/ML (2 ML VIAL) ONE (10:50)
[2021-08-15] MEDS ORDERED: PROPOFOL 10 MG/ML 20 ML VIAL IV ONE (10:50)
[2021-08-15] MEDS ORDERED: LIDOCAINE 1% INJ 10MG/ML (20 ML MDV) SQ ONE ×3 (10:57→10:58)
[2021-08-15] MEDS ORDERED: BUPIVACAINE (PF) 0.5% 30 ML VIAL SQ ONE ×3 (10:57→10:58)
[2021-08-15 11:27] VITALS: PULSE 62
[2021-08-15 11:29] VITALS: BP 130/84; RESP 20
--- NOTE | 2021-08-15 21:07 | P.OP ---
Date of Procedure: 08/15/21 Preoperative Diagnosis: Right thumb trigger finger Postoperative Diagnosis: Right thumb trigger finger Procedure(s) Performed: Right thumb A1 walker release Anesthesia: MAC Surgeon: Jhonny Laguerre Soda Worker #1: Lucho Ramirez Estimated Blood Loss (ml): 0 Pathology: none sent Condition: stable Disposition: PACU Description of Procedure: This is a 55 year old female who presents today for a right thumb trigger finger A1 walker release after having failed conservative treatment. Risks and benefits of surgery were discussed with the patient including bleeding, damage to surrounding tissue, infection, need for further surgery as well as risks of anesthesia including pulmonary embolism and even and the patient wished to proceed with surgical intervention. The patient was seen in the pre-operative area by myself. Consent and H&P were completed and updated. The correct extremity was marked in the pre-operative area by myself and all other questions were answered. Operative Narrative: The patient was brought to the operating room by the department of anesthesia. They remained on the portable stretcher and a rolling hand table was brought to the side of the operative extremity. Pre-operative time out was performed indicating the correct patient, procedure and laterality. All in the room agreed. Pre-operative antibiotics were given prior to skin incision. The patient was then drifted off to sleep by the department of anesthesia. MAC anesthesia was utilized and a 50:50 mixture of 1% Lidocaine and 0.5% bupivacaine was injected into the subcutaneous tissues of the palmar skin, 5 ccs total. A nonsterile tourniquet was then applied to the operative extremity and the operative upper extremity was then prepped and draped in normal sterile fashion. The operative extremity was the exsanguinated with an esmarch bandage and the tourniquet was inflated to 250mmHg. Transverse incision was made at the base of the thumb overlying the A1 walker. Blunt dissection was taken down to the level of the A1 walker. Ragnell retractors were placed both radially and ulnarly to protect neurovascular bundles. Littler tenotomy scissors were then used to release the A1 walker from proximal to distal under direct visualization. Proximal fascial attachments were released. The tendon was then taken through range of motion and no locking or catching was appreciated. The wound was then closed with interrupted 4-0 nylon sutures in a horizontal mattress fashion. Sterile dressing consisting of adaptic, 4x4s, webril, and an trey wrap was applied. Tourniquet was let down and the hand was immediately well perfused. The patient was then woken by the dep artment of anesthesia and transferred to PACU in stable condition. Lucho ARAMBULA was present for the case for assistance in major portions of the case and protection of neurovascular structures. Jhonny Laguerre D.O. Orthopedic Hand/Upper Extremity Surgeon
== END 2021-08-15 11:46 | disposition home or self-care (01) ==
LOC: OR 10:15
PROVIDERS: ATTEND Orthopaedic Surgery Hand Surgery
DX: M65.311 Trigger thumb, right thumb (principal); K21.9 Gastro-esophageal reflux disease without esophagitis; J44.9 Chronic obstructive pulmonary disease, unspecified; E78.5 Hyperlipidemia, unspecified; I10 Essential (primary) hypertension; M19.90 Unspecified osteoarthritis, unspecified site; K44.9 Diaphragmatic hernia without obstruction or gangrene; I25.2 Old myocardial infarction; F41.9 Anxiety disorder, unspecified; Z98.51 Tubal ligation status; Z98.890 Other specified postprocedural states; F17.200 Nicotine dependence, unspecified, uncomplicated; Z82.49 Family history of ischemic heart disease and other diseases of the circulatory system; Z79.82 Long term (current) use of aspirin; Z79.899 Other long term (current) drug therapy
CPT/HCPCS: 93005; 26055; J2250; J1100; J2405; J2001 ×2; J3010; J2704